=== PATIENT | female | born 1990 | race Caucasian/White ===

== ENCOUNTER 2017-03-28 11:08 | Inpatient (IN) | payer BC ==
[~2017-03-28] VITALS: Ht 158.8 cm; Wt 58.0 kg
--- OUTSIDE RECORDS SUMMARY | ~2017-03-28 | XMS ---
Demographics + + + | Address | [address] | | | [place] [address] | + + + | Preferred Language | Unknown | + + + | Marital Status | Unknown | + + + | Mu-Ism Affiliation | Unknown | + + + | Race | Unknown | + + + | Ethnic Group | Unknown | + + + Author + + + | Author | [facility] | + + + | Organization | [facility] | + + + | Address | [address] | | | [place] [address] | + + + | Phone | | + + + Care Team Providers + + + + | Care Cnc Manufacturing Engineer Name | Role | Phone | + + + + Unavailable | Unavailable | + + + + PROBLEMS +---------+ + + +--------+ + + | Type | Condition | ICD9-CM | FNS88-BP | Onset | Condition | SNOMED | | | | Code | Code | Dates | Status | Code | +---------+ + + +--------+ + + | Problem | Encounter | Z34.90 | | | Active | [id number] | | | for | | | | | | | | supervisio | | | | | | | | n of | | | | | | | | normal | | | | | | | | | | | | | | +---------+ + + +--------+ + + | Problem | Underweigh | | R63.6 | | Active | [id number] | | | t | | | | | | +---------+ + + +--------+ + + ALLERGIES Unknown Allergies SOCIAL HISTORY No smoking Hx information available PLAN OF CARE VITAL SIGNS MEDICATIONS Unknown Medications RESULTS No Results PROCEDURES No Known procedures IMMUNIZATIONS No Known Immunizations"
[~2017-03-28 11:08] MED LIST: CIPROFLOXACIN500 MG PO; CRUTCH1 EACH; KEFLEX250 MG PO; MIGRAINE RELIE1 EACH PO; NAPROXEN250 MG PO; NAPROXEN500 MG PO
--- NOTE | 2017-03-31 12:26 | PR ---
[facility] [address] [place], [place] [address] Signed Progress Notes IP Datetime Report Generated by CPN: 03/31/2017 12:25 PROGRESS NOTES: [id number] Procedures: Artificial ROM Plan: Continue present management; Anticipate Vaginal Delivery VITAL SIGNS: [id number] Vital Signs: Reviewed; Within Normal Limits EXAM: [id number] Dilatation: 4.0 Effacement: 80 Station: -2 Uterine Contractions: rare MEMBRANES: [id number] Membrane Status: Ruptured Amniotic Fluid Color: Clear ROM Note: AROM withour difficulty Comments: Would like Epidural when contracitons get strong Fetus A: [id number] FHR Baseline: 120 Variability: Moderate 6-25bpm Accelerations: 15X15 Presentation: Vertex Fetus B: [id number] Signing Physician: Chun Guillen MD CC: *Electronically Signed* 03/31/17 1225 CHUN GUILLEN MD PATIENT NAME: NOAH KAYE PROGRESS NOTE DATE OF : 89 PHYSICIAN: CHUN GUILLEN MD RPT #: [id number] REPORT IS CONFIDENTIAL AND NOT TO BE RELEASED WITHOUT AUTHORIZATION
--- NOTE | 2017-03-31 18:23 | PR ---
[facility] [address] [place], [place] [address] Signed Progress Notes IP Datetime Report Generated by CPN: 03/31/2017 18:23 PROGRESS NOTES: [id number] Impression: Slow Progression of Labor Procedures: Intrauterine Pressure Catheter; Scalp Electrode Plan: Augmentation; Anticipate Vaginal Delivery VITAL SIGNS: [id number] Vital Signs: Reviewed; Within Normal Limits EXAM: [id number] Dilatation: 5.0 Effacement: 90 Station: -2 Uterine Contractions: every 2-3 minutes MEMBRANES: [id number] Membrane Status: Ruptured Amniotic Fluid Color: Clear ROM Note: AROM withour difficulty Comments: Comfortable with Epidural, but slow progress. Start Pitocin (low dose). Fetus A: [id number] FHR Baseline: 130 Variability: Moderate 6-25bpm Accelerations: 15X15 Decelerations: Variable Presentation: Vertex Fetus B: [id number] Signing Physician: Chun Guillen MD CC: *Electronically Signed* 03/31/17 1823 CHUN GUILLEN MD PATIENT NAME: NOAH KAYE PROGRESS NOTE DATE OF : 92 PHYSICIAN: CHUN GUILLEN MD RPT #: [id number] REPORT IS CONFIDENTIAL AND NOT TO BE RELEASED WITHOUT AUTHORIZATION
--- NOTE | 2017-04-01 08:38 | PR ---
[facility] [address] [place], [place] [address] Signed PP Progress Notes Datetime Report Generated by CPN: 04/01/2017 08:38 SUBJECTIVE: [id number] Pain: Within normal limits Nausea/Vomiting: Denies Vital Signs: [id number] Vital Signs: Reviewed; Within Normal Limits EXAM: [id number] Abdomen/Uterus: Normal Lochia: Normal Extremities: Normal IMPRESSION/PLAN/PROCEDURES: [id number] Impression: Normal progression Plan: Continue present management Procedures: None Progress Notes: Doing well, without complaint. Signing Physician: Chun Guillen MD CC: *Electronically Signed* 04/01/17 0838 CHUN GUILLEN MD PATIENT NAME: NOAH KAYE PROGRESS NOTE DATE OF : 89 PHYSICIAN: CHUN GUILLEN MD RPT #: [id number] REPORT IS CONFIDENTIAL AND NOT TO BE RELEASED WITHOUT AUTHORIZATION
== END 2017-04-02 10:20 | disposition home or self-care (01) | DRG 775 ==
LOC: FBCO → EDSTATUS 16:30 → FBC 03-31 00:05
PROVIDERS: ADMIT General Practice
PROC: 10907ZC Drainage of Amniotic Fluid, Therapeutic from Products of Conception, Via Natural or Artificial Opening (ICD-10-PCS; principal; 2017-03-31)
PROC: 10E0XZZ Delivery of Products of Conception, External Approach (ICD-10-PCS; 2017-03-31)
PROC: 3E033VJ Introduction of Other Hormone into Peripheral Vein, Percutaneous Approach (ICD-10-PCS; 2017-03-31)
PROC: 00HU33Z Insertion of Infusion Device into Spinal Canal, Percutaneous Approach (ICD-10-PCS; 2017-03-31)
PROC: 3E0R3CZ (ICD-10-PCS; 2017-03-31)
DX: O99.02 Anemia complicating childbirth (principal); D50.9 Iron deficiency anemia, unspecified; Z3A.40 40 weeks gestation of pregnancy; Z37.0 Single live birth; O69.1XX0 Labor and delivery complicated by cord around neck, with compression, not applicable or unspecified; O99.03 Anemia complicating the puerperium
CPT/HCPCS: 01960; 36415; 83030; 85027; 86850; 86900; 86901; J2590; J2790

== ENCOUNTER 2019-06-21 18:04 | Emergency (ER) | payer OTHER ==
[~2019-06-21] VITALS: Ht 160 cm; Wt 45.4 kg
[~2019-06-21 18:04] MED LIST changes: +CLEOCIN HCL300 MG PO; +IBU800 MG PO; +PERCOCET 7.5-31 EACH PO
--- OUTSIDE RECORDS SUMMARY | 2019-06-21 18:08 | XMS ---
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 Care History Medical/Surgical 07/08/2018 [facility] - CHW SCHEDULED A FOLLOW UP APT WITH DR MENDOZA FOR 07/11/18 @ 5:45PM. PATIENT APPROVED OF THE APPOINTMENT. - CHW CONTACTED OLVIN - CLIENT DIRECTOR ABOUT PATIENT FRUSTRATION WITH ED PROVIDER. - Patient is currently established with [facility]. If patient is seen in the ED during business hours. Please contact CHWs at [facility]. Care Recommendation: This patient has had 5 or more Emergency Department visits in the last 12 months.\T\nbsp; Patient requires education on the scope and purpose of the ED as an acute care provider not a Primary Care Provider and should not be utilized for chronic conditions.\T\nbsp; These are guidelines and the provider should exercise clinical judgment when providing care. E.D. VISIT COUNT (12 MO.) 4 [facility] TOTAL 4 NOTE: Visits indicate total known visits. ED/UCC VISIT TRACKING (12 MO.) 06/21/2019 18:05 [facility] [place] TYPE: Emergency COMPLAINT: - COLD SYMPTOMS 03/17/2019 15:53 [facility] TYPE: Emergency COMPLAINT: - LEFT FOOT INJURY DIAGNOSES: - Allergy status to narcotic agent status - Overexertion from prolonged static or awkward postures, init - Pain in left foot - Unspecified sprain of left foot, initial encounter 07/07/2018 18:43 [facility] [place] TYPE: Emergency COMPLAINT: - FACIAL SWELLING/NON INJURY DIAGNOSES: - Allergy status to narcotic agent status - Localized swelling, mass and lump, head - Chronic sinusitis, unspecified 07/06/2018 20:[address] [facility] [place] TYPE: Emergency COMPLAINT: - FACIAL SWELLING DIAGNOSES: - Anxiety disorder, unspecified - Localized swelling, mass and lump, head - Allergy status to narcotic agent status - Cellulitis and abscess of mouth INPATIENT VISIT TRACKING (12 MO.) No inpatient visits to display in this time frame [email or web address]
[2019-06-21] MEDS ORDERED: TAMIFLU75 MG PO (19:40)
== END 2019-06-21 19:50 | disposition home or self-care (01) ==
LOC: ED 18:04
DX: J10.1 Influenza due to other identified influenza virus with other respiratory manifestations (principal); Z88.5 Allergy status to narcotic agent
CPT/HCPCS: 87502; 87880; 96372; 99283; J1885

== ENCOUNTER 2019-09-05 11:59 | Emergency (ER) | payer BC, OTHER ==
[~2019-09-05] VITALS: Ht 160 cm; Wt 51.8 kg
[~2019-09-05 11:59] MED LIST changes: +TAMIFLU75 MG PO
--- OUTSIDE RECORDS SUMMARY | 2019-09-05 12:02 | XMS ---
PreManage Notification: NOAH KAYE Security Performance Test Architect Events No recent Security Events currently on file [place] [facility] [place] DHAVAL MENDOZA Internal Medicine 07/08/2018-Current COLIN PHONE: [phone] DANG ROSARIO [facility] Medicine: Sports Medicine 07/08/2018-Current PHONE: Unknown Sean Siu Current PHONE: Unknown Sonali Braswell Current Orthopedic Surgery \T\ Fracture Clinic PHONE: Unknown Joe has no Care Guidelines for this patient. Care History Medical/Surgical 07/08/[address] [facility] - CHW SCHEDULED A FOLLOW UP APT WITH DR MENDOZA FOR 07/11/18 @ 5:45PM. PATIENT APPROVED OF THE APPOINTMENT. - CHW CONTACTED OLVIN - DAIRY TRUCK DRIVER ABOUT PATIENT FRUSTRATION WITH ED PROVIDER. - Patient is currently established with [facility]. If patient is seen in the ED during business hours. Please contact CHWs at [facility]. Care Recommendation: This patient has had 5 [...] providing care. E.D. VISIT COUNT (12 MO.) 3 [facility] TOTAL 3 NOTE: Visits indicate total known visits. ED/C VISIT TRACKING (12 MO.) 09/05/2019 12:00 [facility] TYPE: Emergency COMPLAINT: - SUICIDAL IDEATIONS 06/21/2019 18:05 [facility] TYPE: Emergency COMPLAINT: - COLD SYMPTOMS DIAGNOSES: - Flu due to oth ident influenza virus w oth resp manifest - Allergy status to narcotic agent status - Cough 03/17/2019 15:53 [facility] TYPE: Emergency COMPLAINT: - LEFT FOOT INJURY DIAGNOSES: - Allergy status to narcotic agent status - Overexertion from prolonged static or awkward postures, init - Pain in left foot - Unspecified sprain of left foot, initial encounter INPATIENT VISIT TRACKING (12 MO.) No inpatient visits to display in this time frame [email or web address]
[2019-09-05] MEDS ORDERED: BUPROPION XL150 MG PO (12:09)
[2019-09-05] MEDS ORDERED: HYDROXYZINE HCL25 MG PO (12:09)
== END 2019-09-05 14:25 | disposition home or self-care (01) ==
LOC: ED 11:59
DX: F32.9 Major depressive disorder, single episode, unspecified (principal); Z88.5 Allergy status to narcotic agent; Z79.899 Other long term (current) drug therapy
CPT/HCPCS: 99283

== ENCOUNTER 2020-12-27 13:42 | Emergency (ER) | payer BC, OTHER ==
[~2020-12-27] VITALS: Ht 160 cm; Wt 51.8 kg
[~2020-12-27 13:42] MED LIST changes: +BUPROPION XL150 MG PO; +HYDROXYZINE HCL25 MG PO
--- OUTSIDE RECORDS SUMMARY | 2020-12-27 13:44 | XMS ---
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 Care History Medical/Surgical 07/08/2018 [facility] - W SCHEDULED A FOLLOW UP APT WITH DR MENDOZA FOR 07/11/18 @ 5:45PM. PATIENT APPROVED OF THE APPOINTMENT. - CHW CONTACTED OLVIN - NETWORK SYSTEMS ADMINISTRATOR ABOUT PATIENT FRUSTRATION WITH ED PROVIDER. - Patient is currently established with [facility]. If patient is seen in the ED during business hours. Please contact CHWs at [facility]. Care Recommendation: This patient has had 5 or more Emergency Department visits in the last 12 months.\T\nbsp; Patient requires education on the scope and purpose of the ED as an acute care provider not a Primary Care Provider and should not be utilized for chronic conditions.\T\nbsp; These are guidelines and the provider should exercise clinical judgment when providing care. Behavioral 09/06/2019 [facility] Concerns of self harm.\T\nbsp; [employer] involved.\T\nbsp; Patient has follow up visit with crisis counselor next week.\T\nbsp; Follow up scheduled with PCP Dr. Mendoza on 09/30/2019 [facility] VISIT COUNT (12 MO.) 1 [facility] TOTAL 1 NOTE: Visits indicate total known visits. ED/UCC VISIT TRACKING (12 MO.) [facility] COMPLAINT: - FACIAL PAIN INPATIENT VISIT TRACKING (12 MO.) No inpatient visits to display in this time frame [email or web address]
[2020-12-27] MEDS ORDERED: AMOXICILLIN500 MG PO (14:04)
[2020-12-27] MEDS ORDERED: PSEUDOEPHEDRINE30 MG PO (14:04)
[2020-12-27] MEDS ORDERED: SERTRALINE HCL50 MG PO (14:05)
== END 2020-12-27 15:06 | disposition home or self-care (01) ==
LOC: ED 13:42
DX: K02.9 Dental caries, unspecified (principal); J32.9 Chronic sinusitis, unspecified; Z88.5 Allergy status to narcotic agent; Z79.899 Other long term (current) drug therapy
CPT/HCPCS: 64400; 99282-25

== ENCOUNTER 2022-01-19 16:05 | Emergency (ER) | payer OTHER ==
[~2022-01-19] VITALS: Ht 160 cm; Wt 51.8 kg
[~2022-01-19 16:05] MED LIST changes: +AMOXICILLIN500 MG PO; +PSEUDOEPHEDRINE30 MG PO; +SERTRALINE HCL50 MG PO
[2022-01-19] MEDS ORDERED: ATIVAN0.5 MG PO (20:22)
== END 2022-01-19 20:47 | disposition home or self-care (01) ==
LOC: ED 16:05
DX: F41.9 Anxiety disorder, unspecified (principal); F32.A Depression, unspecified; Z88.5 Allergy status to narcotic agent; Z79.899 Other long term (current) drug therapy
CPT/HCPCS: 71045; 94640; 99283-25

== ENCOUNTER 2023-07-11 17:22 | Emergency (ER) | payer OTHER ==
[~2023-07-11] VITALS: Ht 160 cm; Wt 55.1 kg
[~2023-07-11 17:22] MED LIST changes: +ATIVAN0.5 MG PO
[2023-07-11 17:41] LABS: BILIRUBIN, URINE NEGATIVE (negative); BLOOD/HGB, URINE LARGE (Negative); KETONE, URINE NEGATIVE (Negative); LEUK ESTERASE, URINE NEGATIVE (negative); NITRITE, URINE NEGATIVE (negative); PH, URINE 6.5 (5-7)
[2023-07-11] MEDS ORDERED: CEPHALEXIN250 MG PO (17:46)
[2023-07-11 18:01] LABS: BACTERIA, URINE RARE /hpf (negative); CASTS, URINE NONE SEEN \\lpf; COLLECTION TYPE, URINE CLEAN CATCH; CRYSTALS, URINE NONE SEEN (0-1+); EPITHELIAL CELLS, URINE SQUAMOUS 1+ /lpf (0-1+); REFLEX CULTURE, URINE No (No)
[2023-07-11 19:50] LABS: ABO B; RH NEGATIVE
[2023-07-11 20:32] VITALS: BP 101/60
== END 2023-07-11 20:32 | disposition home or self-care (01) ==
LOC: ED 17:22
PROVIDERS: Emergency Medicine
DX: O20.9 Hemorrhage in early pregnancy, unspecified (principal); Z3A.14 14 weeks gestation of pregnancy; Z88.5 Allergy status to narcotic agent; Z79.899 Other long term (current) drug therapy
CPT/HCPCS: 36415; 81001; 86900; 86901; J2790

== ENCOUNTER 2024-01-05 06:05 | Inpatient (IN) | payer OTHER ==
[~2024-01-05] VITALS: Ht 160 cm; Wt 65.8 kg
[~2024-01-05 06:05] MED LIST changes: +CALCIUM CARBONATE 500 MG CHEW PO PRN; +CEPHALEXIN250 MG PO; +LACTATED RINGER'S 1,000 ML IV SCH; +MAGNESIUM HYDROXIDE/AL HYDROX 30 ML CUP PO PRN; +miSOPROStoL 25 MCG TAB PV SCH
[2024-01-05] MEDS ORDERED: OXYTOCIN/DEXTROSE 5% 20 UNITS/100 ML BAG IV SCH (06:15)
[2024-01-05] MEDS ORDERED: LACTATED RINGER'S 1,000 ML IV PRN (06:15)
[2024-01-05] MEDS ORDERED: ondansetron HCL 4 MG/2 ML VIAL IV PRN ×3 (06:15→23:15)
[2024-01-05 06:47] VITALS: BP 110/66
[2024-01-05 06:52] LABS: HEMATOCRIT 29.7 % (35.0-50.0); HEMOGLOBIN 9.7 g/dL (12.0-18.0); MCHC 32.6 g/dl (30-36); MCV 79.8 fl (81-99); RBC 3.72 M/ul (4.3-5.7)
[2024-01-05 07:11] LABS: AMPHETAMINES, URINE NEGATIVE (NEGATIVE); BARBITURATES, URINE NEGATIVE (NEGATIVE); BENZODIAZEPINE, URINE NEGATIVE (NEGATIVE); BUPRENORPHINE, URINE NEGATIVE (NEGATIVE); CANNABINOID, URINE NEGATIVE (NEGATIVE); COCAINE, URINE NEGATIVE (NEGATIVE); ECSTASY, URINE NEGATIVE (NEGATIVE); FENTANYL, URINE NEGATIVE (NEGATIVE); METHADONE, URINE NEGATIVE (NEGATIVE); OPIATES, URINE NEGATIVE (NEGATIVE); OXYCODONE, URINE NEGATIVE (NEGATIVE); PHENCYCLIDINE, URINE NEGATIVE (NEGATIVE)
[2024-01-05 07:26] LABS: ABO B; ANTIBODY SCREEN NEGATIVE; RH NEGATIVE
--- NOTE | 2024-01-05 18:12 | PR ---
[facility] [address] [place], [place] [address] Signed Progress Notes IP Datetime Report Generated by CPN: 01/05/2024 18:12 PROGRESS NOTES: [id number] Impression: Normal Progression of Labor; Reassuring Heart Rate Procedures: Artificial ROM; Sterile Vag Exam Plan: Continue Present Management Other Plans: Epidural demand Informed Consent Obtain: Vaginal Delivery VITAL SIGNS: [id number] Vital Signs: Reviewed; Within Normal Limits EXAM: [id number] Dilatation: 2.0 Effacement: 70 Station: -3 Contractions: q 1-2 min MEMBRANES: [id number] Comments: Pt seen and examined. Doing well. More uncomfortable w/ contractions. cervix ripe and head well applied. Recommended AROM and pt agrees. AROM for large amount of clear fluid. Pt and baby tolerated well. Pt considering epidural. Continue expectant management. FETUS A: [id number] FHR Baseline: 135 Variability: Moderate 6-25bpm Accelerations: 15X15 Decelerations: None Presentation: Vertex Comments on Fetus A: No evidence of metabolic acidosis FETUS B: [id number] Signing Physician: Howie Cisneros DO Copies: ~ *Electronically Signed* 01/05/24 600 HOWIE CISNEROS (RONI) DO PATIENT NAME: NOAH KAYE PROGRESS NOTE DATE OF : 89 PHYSICIAN: HOWIE CISNEROS) DO RPT #: [id number] REPORT IS CONFIDENTIAL AND NOT TO BE RELEASED WITHOUT AUTHORIZATION
[2024-01-05] MEDS ORDERED: LIDOCAINE HCL 2% 5 ML SDV ONE ×2 (19:07→19:32)
[2024-01-05] MEDS ORDERED: ROPIVACAINE 0.2% 200 ML BAG ONE (19:07)
[2024-01-05] MEDS ORDERED: BUPIVACAINE HCL 0.25% 10 ML SDV INJ ONE (19:07)
[2024-01-05] MEDS ORDERED: dexmedeTOMIDine HCl 200 MCG/2 ML VIAL ONE (19:32)
[2024-01-05] MEDS ORDERED: LACTATED RINGER'S 500 ML IV PRN (20:00)
[2024-01-05] MEDS ORDERED: ROPIVACAINE 0.2% 200 ML BAG EPIDURAL SCH ×2 (20:00)
[2024-01-05] MEDS ORDERED: LACTATED RINGER'S 2,000 ML IV ONE (20:00)
[2024-01-05] MEDS ORDERED: ePHEDrine sulfate 5 MG/ML SYRINGE IV PRN (20:00)
[2024-01-05] MEDS ORDERED: TRANEXAMIC ACID IN NACL,ISO-OS 100 ML IV ONE (20:07)
[2024-01-05] MEDS ORDERED: LIDOCAINE HCL 4% 5 ML AMP ONE (20:15)
[2024-01-05] MEDS ORDERED: ondansetron HCL 4 MG/2 ML VIAL ONE (20:15)
[2024-01-05] MEDS ORDERED: MIDAZOLAM HCL 2 MG/2 ML VIAL ONE (20:15)
[2024-01-05] MEDS ORDERED: fentaNYL citrate 100 MCG/2 ML VIAL ONE (20:15)
[2024-01-05] MEDS ORDERED: FAMOTIDINE 20 MG/ 2 ML VIAL ONE (20:15)
[2024-01-05] MEDS ORDERED: METOCLOPRAMIDE HCL 10 MG/2 ML SDV ONE (20:15)
[2024-01-05] MEDS ORDERED: SUCCINYLCHOLINE IN 0.9% NACL 200 MG/10 ML SYRINGE ONE (20:15)
[2024-01-05] MEDS ORDERED: KETOROLAC TROMETHAMINE 30 MG/ML VIAL ONE (20:15)
[2024-01-05] MEDS ORDERED: ROCURONIUM BROMIDE 50 MG/5 ML SYR ONE (20:15)
[2024-01-05] MEDS ORDERED: propofoL 200 MG/20 ML VIAL ONE (20:15)
[2024-01-05] MEDS ORDERED: DEXAMETHASONE SOD PHOS 4 MG/ML VIAL ONE (20:15)
[2024-01-05] MEDS ORDERED: LACTATED RINGER'S 1,000 ML IV ONE ×8 (20:15→22:06)
[2024-01-05] MEDS ORDERED: SUGAMMADEX SODIUM 200 MG/2 ML ML ONE (20:15)
[2024-01-05] MEDS ORDERED: LIDOCAINE 2% W/ EPI 1:200,000 20 ML SDV ONE (20:21)
[2024-01-05] MEDS ORDERED: CEFAZOLIN SOD 1,000 MG/10 ML VIAL ONE (20:43)
[2024-01-05 21:07] LABS: BASOPHILS 0.3 % (0-2); HEMATOCRIT 24.1 % (35.0-50.0); HEMOGLOBIN 7.6 g/dL (12.0-18.0); LYMPHOCYTES 6.8 % (24-44); MCH 25.7 (27-36); MCHC 31.4 g/dl (30-36); MCV 81.8 fl (81-99); MONOCYTES 3.6 % (0-12); NEUTROPHILS 89.3 % (39-80); PLATELET COUNT 134 K/uL (140-440); RBC 2.95 M/ul (4.3-5.7); RDW 13.9 (10.5-15.0)
[2024-01-05 21:23] LABS: IS CROSSMATCH COMPATIBLE
[2024-01-05 21:24] LABS: INR 1.1 (0.80-1.30); PROTIME 13.8 Sec (11.2-14.2)
[2024-01-05 21:28] LABS: PARTIAL THROMBOPLASTIN TIME 31.9 Sec (22.9-41.3)
[2024-01-05] MEDS ORDERED: TRANEXAMIC ACID 1,000 MG/10 ML AMP ONE (21:56)
[2024-01-05 22:22] LABS: INR 1.27 (0.80-1.30); PARTIAL THROMBOPLASTIN TIME 26.2 Sec (22.9-41.3); PROTIME 15.5 Sec (11.2-14.2)
[2024-01-05 22:26] LABS: BASOPHILS 0.2 % (0-2); EOSINOPHILS 0.1 % (0-6); HEMATOCRIT 24.5 % (35.0-50.0); HEMOGLOBIN 7.9 g/dL (12.0-18.0); LYMPHOCYTES 3.9 % (24-44); MCH 27.5 (27-36); MCHC 32.4 g/dl (30-36); MONOCYTES 3.2 % (0-12); NEUTROPHILS 92.6 % (39-80); PLATELET COUNT 127 K/uL (140-440); RBC 2.88 M/ul (4.3-5.7); RDW 14.8 (10.5-15.0)
[2024-01-05] MEDS ORDERED: IBLOOD GLUCOSE TEST STRIP 1 EA TEST VI PRN (22:30)
[2024-01-05] MEDS ORDERED: NALOXONE HCL 0.4 MG SYR IV PRN ×2 (22:30→23:15)
[2024-01-05] MEDS ORDERED: fentaNYL citrate 50 MCG/ML SDV IV PRN (22:30)
[2024-01-05] MEDS ORDERED: MIDAZOLAM HCL 2 MG/2 ML VIAL IV PRN (22:30)
[2024-01-05] MEDS ORDERED: MORPHINE SULFATE 10 MG/ML VIAL IV PRN ×2 (22:30→23:15)
[2024-01-05] MEDS ORDERED: droPERidol 5 MG/2 ML VIAL IV PRN (22:30)
[2024-01-05] MEDS ORDERED: METOCLOPRAMIDE HCL 10 MG/2 ML SDV IV PRN ×2 (22:30→23:15)
[2024-01-05] MEDS ORDERED: PROCHLORPERAZINE EDISYLATE 10 MG/2 ML VIAL IV PRN (22:30)
[2024-01-05] MEDS ORDERED: LORazepam 2 MG/ML VIAL IV PRN (22:30)
--- NOTE | 2024-01-05 23:08 | NUR ---
PATIENT ARRIVE AT THIS TIME, SHE HAS SEVERE SHIVERING, SHE HAS 96.7 F TEMP AT THIS TIME. OR NURSE WENT AND RETRIEVED BEAR HUGGER WARMER WELL WARM BLANKETS APPLIED. TWO SURGERY RNS AND ADRIAN ALBA CRNA IN ROOM, PATIENT NOTED TO HAVE SCANT AMOUNT OF BLOOD ON RAMO PAD AND SHADOW ON ABD DRESSING, ALSO NOTEABLE LEFT ARM AND HAND SWOLLEN, TIGHT AND DUSKY. ADRIAN ALBA AWARE, PULSES STRONG AT LEFT RADIAL PULSE, ARM ELEVATED WITH WARM BLANKET, PATIENT ALSO REPORT PAINFUL AT ABD AND LEFT ARM, PAIN MEDICATIONS GIVEN BY SPECIAL ED ASSISTANT.
[2024-01-05 23:15] VITALS: BP 185/152
[2024-01-05] MEDS ORDERED: SIMETHICONE 125 MG TABLET CHEWABLE PO PRN (23:15)
[2024-01-05] MEDS ORDERED: OXYCODONE/APAP 5/325 TAB PO PRN (23:15)
[2024-01-05] MEDS ORDERED: bisacodyL 10 MG SUPP PR PRN (23:15)
[2024-01-05] MEDS ORDERED: FAMOTIDINE 20 MG/ 2 ML VIAL IV PRN (23:15)
[2024-01-05] MEDS ORDERED: LACTATED RINGER'S 1,000 ML IV SCH (23:15)
[2024-01-05] MEDS ORDERED: IBUPROFEN 800 MG TAB PO PRN (23:15)
[2024-01-05 23:20] VITALS: BP 110/51
[2024-01-05] MEDS ORDERED: MEPERIDINE HCL 25 MG/1 ML VIAL ONE (23:20)
[2024-01-05 23:30] VITALS: BP 106/51
[2024-01-05] MEDS ORDERED: ETOMIDATE 40 MG/20 ML VIAL ONE (23:33)
[2024-01-05 23:45] VITALS: BP 105/55
--- NOTE | 2024-01-05 23:45 | NUR ---
BOARDING KENNEL OR CATTERY OPERATOR ANASTASIA REPORT OFF CARE TO THIS RN AT THIS TIME.
--- NOTE | 2024-01-05 23:55 | NUR ---
1 UNIT FFP STARTED PER ORDERS. IVF RUNNING, NEW IV STARTED IN RIGHT AC, LEFT WRIST IV REMOVED, IT WAS NOTED TO HAVE BLOOD RETURN PRIOR TO REMOVAL. HAVEING THE SWELLING AND TIGHTNESS AT LEFT ARM/HAND NOT GOING TO USE THIS IV. PATIENT COOPERATIVE WITH ALL CARE. FAMILY HAS BEEN APPROPRIATE WITH CCU STAFF.
[2024-01-06] VITALS (18 sets, daily range): BP systolic 99–156; BP diastolic 50–92
--- NOTE | 2024-01-06 | NUR ---
TO BEDSIDE, SPOUSE HAS BEEN IN AND LEFT FOR NOW, THIS RN HAS BROUGHT TO ATTENTION LEFT HAND AND ARM SYMPTOMS. TALKED WITH PATIENT ABOUT SURGERY AND PLAN OF CARE.
--- NOTE | 2024-01-06 00:37 | NUR ---
01/06/24 0037 Annette Hyman 2308 PATIENT INTO CCU ROOM 128. GLORIA GRAMAJO AT BEDSIDE. MARY ALBA INTO GIVE REPORT. PATIENT REACTIVE TO VERBAL STIMULI. PATIENT SHAKING. BLANKETS OVER PATIENT. BREATHING LABORED BUT EQUAL. OXYGEN SATURATIONS ABOVE 100% VIA MASK. RR 10-20. UNABLE TO OBTAIN AN ACCURATE PRESSURE AT THIS TIME. PATIENT SURGICAL DRESSING CLEAN, DRY AND INTACT. RAMO PAD SMALL AMOUNT OF RED SHADOWING PRESENT. IVF INFUSING. LEFT ARM ELEVATED DUE TO SWELLING IN EXTERMITY. PULSES FELT STRONG. SCD'S ON. KELLER CATH DRAINING CLEAR AND YELLOW URINE. 2315 PATIENT REACTIVE. PATIENT BREATHING EQUAL AND UNLABORED. OXYGEN SATURATIONS ABOVE 100% VIA MASK ON 10 LITERS. SINUS TACH ON TELE. 2320 ABLE TO OBTAIN BLOOD PRESSURE FROM LEFT LOWER EXTERMITY. 2325 PATIENT DROWSY. PATIENT BREATHING EQUAL AND UNLABORED. PATIENT SHAKING AND PAIN IS AT A 5/10. 5 MG OF IV MORPHINE GIVEN. MARY ALBA GIVING IV DEMEROL. PATIENT OXYGEN SATURATIONS ABOVE 90% WITH 6 LITERS VIA MASK. SINUS TACH ON TELE. SURGICAL SITE CLEAN, DRY AND INTACT. RAMO PAD SMALL AMOUNT OF SHADOWING. IVF INFUSING. SCD'S ON. 2335 PATIENT DROWSY. PATIENT STATES PAIN HAS IMPROVED TO A 0/10. SHAKING HAS STOPPED. PATIENT OXYGEN TITRATED DOWN TO 2 LITERS VIA NASAL CANNULA. PATIENT BREATHING EQUAL AND UNLABORED. OXYGEN SATURATIONS ABOVE 90% ON ROOM AIR. RR 12-20. SINUS TACH ON TELE. SURGICAL DRESSING CLEAN, DRY AND INTACT. RAMO PAD SMALL AMOUNT OF SHADOWING. 2345 PATIENT AND FRIEND AT BEDSIDE. PATIENT FRUSTRATED ABOUT OUTCOME OF PROCEDURE. PATIENT INSISTS PATIENT GETS TRANSFERRED TO ANOTHER FACILITY IN THE MORNING. APPLICATION SECURITY DEVELOPER AWARE OF SITUATION. SECURITY OUTSIDE OF ROOM. 2350 GLORIA GRAMAJO INTO ROOM TO RECIEVE REPORT. BED IN LOWEST POSITION. CALL LIGHT GIVEN. NO QUESITIONS FROM THE PATIENT, NURSE OR AT THIS TIME. NO FUTHER NEEDS.
--- NOTE | 2024-01-06 01:30 | NUR ---
SISTER, BABY AND SPOUSE IN ROOM TO VISIT AT THIS TIME. PATIENT V/S STABLE, SHE REPORTS ONLY PAIN AT THIS TIME IS IN LEFT HAND
--- NOTE | 2024-01-06 02:31 | NUR ---
PATIENT LEFT HAD REMAINS SWOLLEN AND TIGHT AND PAINFUL. WARM PACK/BLANKET AND TWO PILLOWS ELEVATED AT THIS TIME, COLOR HAS IMPROVED, RADIAL PULSE IS STRONG, CAP REFILL IS BRISK.
--- NOTE | 2024-01-06 03:00 | NUR ---
BLOOD DRAWN FROM NEW IV SITE AT RIGHT AC. PATIENT ALERT AND ORIENTED, REPORTS PAIN AT LEFT HAND/FA.
[2024-01-06 03:07] LABS: HEMATOCRIT 25.8 % (35.0-50.0); HEMOGLOBIN 8.5 g/dL (12.0-18.0); MCH 27.4 (27-36); MCV 83.1 fl (81-99); RBC 3.1 M/ul (4.3-5.7); RDW 14.7 (10.5-15.0)
[2024-01-06 03:17] LABS: INR 1.09 (0.80-1.30); PROTIME 13.8 Sec (11.2-14.2)
[2024-01-06 03:19] LABS: PARTIAL THROMBOPLASTIN TIME 26.4 Sec (22.9-41.3)
--- NOTE | 2024-01-06 04:08 | NUR ---
CALLED AFTER TALKING WITH OF CONCERNS FOR COMPARTMENT SYNDROME, SAID HE DOES NOT DO HANDS, TNT POWDER WORKER RN HAD FROM ED COME DOWN AND LOOK AT HER LEFT HAND, SHE SUGGESTS MEDIUM COMPRESSION, HIGHER ELEVATION AND S/L PT, CALLED BACK HE AGREES WITH THE ABOVE, HE IS GOING TO CALL HIMSELF FOR FURHTER CONSULT.
--- NOTE | 2024-01-06 04:21 | NUR ---
CALLED TO REPORT THAT WILL BE INTO ASSESS PATIENT.
[2024-01-06 04:32] LABS: ABO B; ANTIBODY SCREEN NEGATIVE; RH NEGATIVE; RHIG VIAL 1 RG22K01-L
[2024-01-06 04:33] LABS: FETAL HEMOGLOBIN SCREEN NEGATIVE; RHIG STATUS CANDIDATE
[2024-01-06 04:35] LABS: RHIG DOSE 1
--- NOTE | 2024-01-06 05:02 | NUR ---
DR. PENA AT BEDSIDE FOR PT ASSESSMENT.
--- NOTE | 2024-01-06 05:28 | NUR ---
HAS BEEN INTO ASSESS PATIENT AND TAKE PRESSURES THROUGHOUT LEFT FA AND HAND, PRESSURES ARE NOTED TO BE HIGH, PLANS TO TAKE HER TO SURGERY THIS AM TO RELIEVE PRESSURES.
[2024-01-06 05:38] LABS: ALBUMIN 1.6 g/dL (3.4-5.0); ALBUMIN/GLOBULIN RATIO 0.59 (1.1-2.4); BILIRUBIN, TOTAL 0.4 ng/dL (0.2-1.0); BUN/CREATININE RATIO 4.54 (6.0-28.6); CALCIUM 7.3 mg/dL (8.5-10.1); CREATININE, SERUM 0.66 mg/dL (0.55-1.02); PROTEIN, TOTAL 4.3 g/dL (6.4-8.2)
--- NOTE | 2024-01-06 06:01 | NUR ---
PATIENT OFF THE FLOOR NOW WITH SURGERY NURSES X2. BHARATH PT'S SPOUSE LEFT UNIT TO GO SPEND TIME WITH BABY IN [facility]. LABS PRINTED, CONSENT SIGNED ON CHART, ALL QUESTIONS ANSWERED FOR PATIENT AND SPOUSE. SPOUSE IS VERY UPSET WITH PATIENT NEEDING FURTHER SURGERY, ELECTRONICS PRODUCTION SUPERVISOR TROY RN IN ROOM TO TALK WITH PATIENT, TROY SAID SHE WOULD REACH OUT TO ADMINISTRATION TO TALK WITH PATIENT AND SPOUSE. PATIENT SAID IF ANYTHING ELSE COMES UP "I WILL WANT TO BE TRANSFERED TO ANOTHER HOSPITAL"
[2024-01-06] MEDS ORDERED: fentaNYL citrate 100 MCG/2 ML VIAL ONE (06:13)
[2024-01-06] MEDS ORDERED: dexmedeTOMIDine HCl 200 MCG/2 ML VIAL ONE (06:14)
[2024-01-06] MEDS ORDERED: SODIUM CHLORIDE 0.9% 40 ML IV ONE (06:14)
[2024-01-06] MEDS ORDERED: LIDOCAINE HCL 2% 5 ML SDV ONE (06:14)
[2024-01-06] MEDS ORDERED: ondansetron HCL 4 MG/2 ML VIAL ONE (06:14)
[2024-01-06] MEDS ORDERED: DEXAMETHASONE SOD PHOS 4 MG/ML VIAL ONE (06:14)
[2024-01-06] MEDS ORDERED: ROCURONIUM BROMIDE 50 MG/5 ML SYR ONE (06:14)
[2024-01-06] MEDS ORDERED: KETAMINE in NS 50 MG/5 ML SYR ONE (06:14)
[2024-01-06] MEDS ORDERED: MAGNESIUM SULFATE 1 GM/2 ML VIAL ONE (06:14)
[2024-01-06] MEDS ORDERED: propofoL 200 MG/20 ML VIAL ONE (06:14)
[2024-01-06] MEDS ORDERED: LIDOCAINE HCL 4% 5 ML AMP ONE (06:20)
[2024-01-06] MEDS ORDERED: PHENYLEPHRINE HCL 10 MG/ML VIAL ONE (06:32)
[2024-01-06] MEDS ORDERED: CEFAZOLIN SOD 1,000 MG/10 ML VIAL ONE (06:38)
[2024-01-06] MEDS ORDERED: KETOROLAC TROMETHAMINE 30 MG/ML VIAL ONE (08:04)
[2024-01-06] MEDS ORDERED: SUGAMMADEX SODIUM 200 MG/2 ML ML ONE (08:06)
[2024-01-06] MEDS ORDERED: HYDROmorphone HCL 1 MG/ML SYR IV PRN (08:15)
[2024-01-06] MEDS ORDERED: fentaNYL citrate 50 MCG/ML SDV IV PRN (08:15)
[2024-01-06] MEDS ORDERED: ondansetron HCL 4 MG/2 ML VIAL IV PRN (08:15)
[2024-01-06] MEDS ORDERED: NALOXONE HCL 0.4 MG SYR IV PRN ×2 (08:15)
[2024-01-06] MEDS ORDERED: IBLOOD GLUCOSE TEST STRIP 1 EA TEST VI PRN ×2 (08:15)
[2024-01-06] MEDS ORDERED: droPERidol 5 MG/2 ML VIAL IV PRN (08:15)
--- NOTE | 2024-01-06 08:55 | NUR ---
Received patient from PACU. Patient arrives on room air with stable SPO2. VSS. Alert and oriented to all. Patient hoarse and whispering. Oral swab with water provided. Facial edema noted. HRR. LSC with no crackles noted. Bowel tones active. Skin grossly intact-see wound charts. Midline incision to ABD covered with clean gauze, no bleeding noted. L arm wrapped with soaked kerlex, gauze and JOANN wrap. Hand positioned on pillow for comfort. Patient able to wiggle all fingers on L hand, states 8/10 pain. 5mg morphine administered. Fingers cool and swollen. This RN left a message for Dr Caldera. IVs to R arm both WNL, flush well. Lab in room to draw. Patient assessment WNL at this time. Breasts soft with no pain. Vaginal area swollen as expected per delivery, montenegro catheter in place draining clear yellow urine, mora pad in place with scant blood noted. DTR test complete with no hyperreflexia or clonus seen to bilateral legs. No swelling in legs, CMS fully intact. SCDs in place. Pt is afebrile, agreeable to plan of care, in room and updated on patient status. Both have no concerns at this time.
[2024-01-06] MEDS ORDERED: SENNOSIDES/DOCUSATE 1 EA TAB PO SCH (09:00)
[2024-01-06] MEDS ORDERED: OXYTOCIN 10 UNITS/ML VIAL IV ONE (09:12)
--- NOTE | 2024-01-06 09:17 | NUR ---
01/06/24 0917 Sarah,Meredith 0893 PT ARRIVED TO PACU ON RA, PT ASLEEP AND REACTVE TO TACTILE SITMULI. RESP EVEN AND UNLABORED BUT SHALLOW AND DECREASED RATE. PT ENCOURAGED TO DEEP BREATHE OFF AND ON. PT NODS "NO" WHEN ASKED ABOUT PAIN. 0840 MD AT BEDSIDE TALKING TO PT, PT OPENS HER EYES AND RESPONDS TO QUESTIONS. PT ABLE TO MOVE LEFT HAND BUT DOES REPORT PAIN. PT DENIES NAUSEA. PLAN OF CARE DISCUSSED. PT ABLE TO FALL BACK ASLEEP EASILY WITH SMALL AMOUNT OF SNORING NOTED. 0855 PT RETUREND TO CCU WITH CCU RNS AT BEDSIDE. REPORT GIVEN AND BED PLUGGED IN. ALL QUESITONS ANSWERED, PT MORE AWAKE AND TALKING TO CCU RNS.
[2024-01-06 09:40] LABS: BASOPHILS 0.2 % (0-2); HEMATOCRIT 24.2 % (35.0-50.0); HEMOGLOBIN 7.8 g/dL (12.0-18.0); LYMPHOCYTES 4.5 % (24-44); MCH 26.9 (27-36); MCHC 32.4 g/dl (30-36); MCV 83.2 fl (81-99); MONOCYTES 2.1 % (0-12); NEUTROPHILS 93.2 % (39-80); PLATELET COUNT 128 K/uL (140-440); RBC 2.91 M/ul (4.3-5.7); RDW 15.1 (10.5-15.0)
[2024-01-06 09:49] LABS: RBC, LEUKOREDUCED 18212400093000F; RBC, LEUKOREDUCED 18212406358800U
--- NOTE | 2024-01-06 09:51 | NUR ---
PATIENT WENT TO CCU POST-SURGERY X2. THE TEACHER OF THE HANDICAPPED WILL BE AVAILABLE FOR ANY DISCHARGE PLANNING NEEDS THAT MAY COME UP DURING THE PATIENT'S HOSPITALIZATION.
[2024-01-06 09:52] LABS: INR 1.14 (0.80-1.30); PROTIME 13.9 Sec (11.2-14.2)
--- NOTE | 2024-01-06 10:00 | NUR ---
REFERRED BY NURSING STAFF DUE TO COMPLICATED SITUATION. PT AWAKE AND ABLE TO CONVERSE. STATED WANTED TO SEE BABY. RN HERMINIA RELAYED PT CONCERNED ABOUT ACCESS TO BREAST PUMP. I FACILITATED ACQUISITION OF BREAST PUMP FROM [facility] AND INQUIRED TO FEASIBILTY OF BABY VISIT. [facility] NURSING STAF INDICATED WOULD TAKE BABY TO PT ROOM FOR VISIT. I RELAYED THIS PLAN TO PT. PT EXPRESSED GRATITUDE, ACCEPTANCE OF SITUATION.
[2024-01-06 10:05] LABS: ALBUMIN 1.5 g/dL (3.4-5.0); ALBUMIN/GLOBULIN RATIO 0.63 (1.1-2.4); ANION GAP 14.6 (7-21); BILIRUBIN, TOTAL 0.3 ng/dL (0.2-1.0); BUN/CREATININE RATIO 6.34 (6.0-28.6); CALCIUM 7.3 mg/dL (8.5-10.1); CREATININE, SERUM 0.63 mg/dL (0.55-1.02); POTASSIUM 4.6 mmol/L (3.5-5.1); PROTEIN, TOTAL 3.9 g/dL (6.4-8.2)
--- NOTE | 2024-01-06 10:08 | NUR ---
Discussed lab values and patient status with Dr Natarajan, verbal orders to decrease IVF to 85ml/hr, baseline set for concerns with L arm postop-- considered WNL at this time. FBC RN in room with baby and mom to promote skin to skin. Michael in room.
[2024-01-06] MEDS ORDERED: FLONASE ALLERG9.9 ML NAS (10:18)
[2024-01-06] MEDS ORDERED: ADVIL200 MG PO (10:19)
[2024-01-06] MEDS ORDERED: TYLENOL325 MG PO (10:19)
--- NOTE | 2024-01-06 10:19 | NUR ---
MED REC COMPLETE
--- NOTE | 2024-01-06 11:20 | NUR ---
PATIENT HAS BABY ON HER CHEST WITH OB STAFF AT THE BEDSIDE. PATIENT REQUESTED A NEW WARM BLANKET ON HER LEFT ARM. ELEVATED PATIENT ARM MORE. DISCUSSED WITH PATIENT WHY SHE HAS SWEELING IN HER FACE. PATIENT DENIES ANY OTHER NEEDS AT THIS TIME.
--- NOTE | 2024-01-06 12:15 | NUR ---
VSS on RA, patient A+O, states no complaints at this time. Tolerating clear liquids and made plan to advance diet as tolerated.
--- NOTE | 2024-01-06 13:14 | NUR ---
Patient resting in bed after babe. Family at bedside. Michael returns to bedside and set up for rest time with patient. Lights dimmed. Patient provided with 0.5 tab of PRN pain medication for 7/10 pain to L arm. L arm remains elevated on pillow, cap refill WNL, CMS intact.
[2024-01-06] MEDS ORDERED: CEFAZOLIN SODIUM 2 GM/20 ML SYR IV SCH (14:00)
--- NOTE | 2024-01-06 14:31 | NUR ---
UR CLINICAL REVIEW: [facility] MEETS INPATIENT CCU CRITERIA [facility]CCO 01/05/24 @ 2655 YES; [facility] FA[facility], AUTH PENDING PLAN TO DC TO HOME.
--- NOTE | 2024-01-06 14:50 | NUR ---
Patient medicated with percocet PRN. Per patient request only half tab given with each administration. Patient states feeling "itchy", reports it being tolerable, but full bed bath provided per this RN with soap and water. Patient states relief found. Geller cath draining WNL. Facial edema decreased significantly.
[2024-01-06 16:08] LABS: BASOPHILS 0.3 % (0-2); HEMATOCRIT 22.3 % (35.0-50.0); HEMOGLOBIN 7.4 g/dL (12.0-18.0); LYMPHOCYTES 6.7 % (24-44); MCH 27.4 (27-36); MCV 83.1 fl (81-99); MONOCYTES 4.4 % (0-12); NEUTROPHILS 88.6 % (39-80); PLATELET COUNT 162 K/uL (140-440); RBC 2.69 M/ul (4.3-5.7)
--- NOTE | 2024-01-06 16:55 | NUR ---
Baby finishes with good latch noted. Skin to skin with mom. IVF infusing WNL. Pt resting in bed and states no needs at this time. Family in room.
--- NOTE | 2024-01-06 17:57 | NUR ---
Baby being held by mom, family at bedside, mom eating her dinner. Requests pain medication, administered 0.5 tab of percocet and PRN motrin. Patient also given simethecone.
--- NOTE | 2024-01-06 18:45 | NUR ---
Patient given I.S. and demonstrates competency.
[2024-01-06] MEDS ORDERED: SODIUM BICARBONATE 50 MEQ in SODIUM CHLORIDE 0.45% 1,000 ML IV SCH (19:00)
--- NOTE | 2024-01-06 19:04 | NUR ---
This RN notifies Dr Caldera of patient recent lab values, temperature and pain level. Orders received for 1 amp of bicarb in IVF, urinalysis with PH, and change in pain medication PRN, see emar. Dr Curry also notified.
[2024-01-06] MEDS ORDERED: OXYCODONE HCL 5 MG TAB PO PRN (19:15)
--- NOTE | 2024-01-06 19:30 | NUR ---
BEDSIDE SHIFT REPORT RECEIVED. PATIENT REST IN BED. DENIED ANY CONCERNS AT THIS TIME. WOULD LIKE TO GET UP SOON TO SIT TO THE EDGE OF THE BED. LEFT ARM IS COVERED WITH KERLEX AND JOANN WRAP BANDAGE. SMALL AMOUNT OF WEEPING NOTED ON CHUCKS PAD. CMS INTACT IN LEFT HAND. PATIENT MOVES HAND SLOWLY BUT WITHOUT PAIN.
--- NOTE | 2024-01-06 20:00 | NUR ---
PATIENT UP TO THE BEDSIDE. PATIENT ABLE TO MOVE WITH SOME ASSISTANCE. PATIENT SUPPORTING LEFT ARM WELL. PATIENT AMBULATED SLOWLY WITH STABLIZING HELP FROM THIS RN. PATIENT DENIED DIZZINESS WITH AMBULATION. PATIENT ASSISTED WITH RAMO CARE USING WATER WATER AND RAMO BOTTLE. FRESH PAD APPLIED. PATIENT HAS SCANT VAGINAL BLEEDING. KELLER CARE DONE. PATIENT RETURNED TO BED. POSITIONED FOR COMFORT. LEFT ARM ELEVATED. SCDs IN PLACE. IV FLUIDS PER ORDER, IV SITES WNL X2. VS STABLE. PATIENT HAS FAMILY AT BEDSIDE.
[2024-01-06] MEDS ORDERED: SODIUM BICARBONATE 50 MEQ/50 ML VIAL ONE (20:20)
--- NOTE | 2024-01-06 21:35 | NUR ---
UPDATE PROVIDED TO DR. PENA. PLAN OF CARE REVIEWED. VERBAL ORDER TO CHANGE DRESSING IF NEEDED ON LEFT ARM.
--- NOTE | 2024-01-06 21:45 | NUR ---
PATIENT MEDICATED FOR PAIN 5/10, MOSTLY IN LEFT HAND/ARM. PATIENT ATTEMPTING TO BREASTFEED BABY. FAMILY AT BEDSIDE TO ASSIST.
[2024-01-06] MEDS ORDERED: ACETAMINOPHEN 500 MG TAB PO SCH (22:00)
--- NOTE | 2024-01-06 23:00 | NUR ---
PATIENT ATTEMPTING TO BREASTFEED BABY. FAMILY AT BEDSIDE TO ASSIST. PATIENT VS STABLE. DENIED CONCERN AT THIS TIME.
[2024-01-07] VITALS (26 sets, daily range): BP systolic 98–154; BP diastolic 61–92
--- NOTE | 2024-01-07 00:15 | NUR ---
PATIENT ASSISTED TO REPOSITION IN BED. LEFT ARM HURTING DUE TO POSITIONING. ASSISTED PATIENT TO REPOSITION. CMS INTACT, GENERALIZED EDEMA NOTED IN LEFT HAND/FINGERS. CONTINUE TO KEEP LEFT EXTREMITIY ELEVATED. PATIENT VS STABLE. ORAL TEMP WNL. IV SITES WNL X2. FAMILY AT BEDSIDE. DISCUSSED POC AND PAIN MANAGEMENT. PATIENT VERBALIZED UNDERSTANDING. WARM BLANKET PROVIDED FOR COMFORT. CALL LIGHT IN REACH.
--- NOTE | 2024-01-07 02:30 | NUR ---
PATIENT RESTING IN BED. EYES CLOSED. FAMILY AT BEDSIDE. BABY IN BASSINET. PATIENT VS STABLE. LEFT ARM ELEVATED. ALLOWED PATIENT TO REST. CALL LIGHT IN REACH.
--- NOTE | 2024-01-07 04:08 | NUR ---
PATIENT PROVIDED PRN PAIN MEDS FOR PAIN IN LEFT ARM AND LOWER ABD. PATIENT ASSISTED TO REPOSITION. CMS INTACT IN LEFT ARM. ARM REMAINS ELEVATED WITH MINIMAL NEW DRAINAGE NOTED. ABD SITE IS CDI, NO NEW DRAINAGE. KELLER IN PLACE, DRAINING FREELY. OUTPUT QS. IV SITE WNL X2. IVF PER ORDER. PATIENT VS STABLE. ENCOURAGED PATIENT TO REST. PATIENT FAMILY AT BEDSIDE TENDING TO BABY. NO OTHER NEEDS AT THIS TIME. CALL LIGHT IN REACH.
[2024-01-07 05:18] LABS: HEMATOCRIT 16.6 % (35.0-50.0); MCH 27.8 (27-36); MCHC 33.2 g/dl (30-36); MCV 83.8 fl (81-99); RBC 1.99 M/ul (4.3-5.7); RDW 15.3 (10.5-15.0)
[2024-01-07 05:19] LABS: BILIRUBIN, URINE NEGATIVE (negative); BLOOD/HGB, URINE NEGATIVE (Negative); KETONE, URINE NEGATIVE (Negative); LEUK ESTERASE, URINE NEGATIVE (negative); NITRITE, URINE NEGATIVE (negative); PH, URINE 6.5 (5-7)
[2024-01-07 05:20] LABS: HEMOGLOBIN 5.5 g/dL (12.0-18.0)
[2024-01-07 05:30] LABS: PARTIAL THROMBOPLASTIN TIME 27.7 Sec (22.9-41.3)
[2024-01-07 05:43] LABS: INR 1.08 (0.80-1.30); PROTIME 13.3 Sec (11.2-14.2)
--- NOTE | 2024-01-07 05:52 | NUR ---
UPDATED ON PATIENT'S LABS, SCANT VAGINAL BLEEDING, AND VS. ORDER RECEIVED TO CROSSMATCH AND TRANSFUSE 2 UNITS PRBC.
[2024-01-07 06:08] LABS: IS CROSSMATCH COMPATIBLE
--- NOTE | 2024-01-07 06:30 | NUR ---
PATIENT UPDATED ON PLAN OF CARE, INCLUDING LAB FINDINGS AND NEED FOR ADDITIONAL PRBC TRANSFUSION. PATIENT AND VERBALIZE UNDERSTANDING. ALL QUESTIONS ANSWERED. FIRST UNIT PRBC STARTED PER POLICY WITH NO SIGN OF REACTION. IV SITES WNL X2. PATIENT REPORTS GOOD PAIN CONTROL. NO CHANGES IN ASSESSMENT FINDINGS. ABD SOFT, TENDER NEAR INCISION. MOSTLY AT LOWER ABD SITE. NO GI UPSET. SCANT VAGINAL DRAINAGE NOTED. WEEPING FROM LEFT ARM NOTED, SMALL AMOUNT OVERALL.
[2024-01-07] MEDS ORDERED: diphenhydrAMINE HCL 25 MG CAP PO ONE (07:00)
[2024-01-07] MEDS ORDERED: FAMOTIDINE 20 MG TAB PO PRN (07:15)
--- NOTE | 2024-01-07 07:40 | NUR ---
REPORT RECEIVED FROM STARR CASTRO, PT AWAKE IN BED WITH FAMILY AND IN THE ROOM. IN TO MEET PT, DISCUSS PLAN OF CARE FOR THE DAY WITH IMMIGRATION SPECIALIST RN, INCLUDING PLAN FOR DRESSING CHANGE TO LUE WITH DR PENA. IN ROOM WELL. PT HAS LUE ELEVATED ON PILLOWS ABOVE HEART, 1ST UNIT OF PRBCS IS INFUSING INTO RIGHT AC, NO S/SX OF INFILTRATION OR SWELLING.
--- NOTE | 2024-01-07 07:50 | NUR ---
PT STATED SHE WANTED TO TRY TO MOVE A BIT, ASSISTED TO SITTING UP TO EDGE OF BED AND THEN TO STANDING POSITION. HR WENT UP TO 130, PT DID STATE SHE WAS A LITTLE DIZZY. HAD PT SIT BACK DOWN AND REPOSITION INTO BED. HR BACK DOWN TO 100'S.
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
--- NOTE | 2024-01-07 08:30 | NUR ---
ADAPTIVE PHYSICAL EDUCATOR, THIS RN, DR HARMON AND A FAMILY FRIEND ARE ALL IN ROOM TO DISCUSS THE PATIENT AND HER HUSBANDS CONCERNS AND HUSBANDS INTENT TO TAKE PT AND HAVE HER SIGN OUT AMA. PT AND HER ARE ABLE TO VOICE CONCERNS AND QUESTIONS.
--- NOTE | 2024-01-07 09:45 | NUR ---
DR PENA IN TO DISCUSS PLAN FOR DRESSING CHANGE TODAY WITH PT AND HER WELL DR HARMON, THIS RN, PTS FRIEND AND HYDRAULIC DREDGE OPERATOR. PT IS AGREEABLE, QUESTIONS ANSWERED AND IS AGREEABLE TO THIS WELL AT THIS TIME. PT REITERATES HER REQUEST TO NOT BE PUT UNDER GENERAL ANESTHESIA AND ALL ARE AWARE OF THIS.
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
--- NOTE | 2024-01-07 10:45 | NUR ---
PT DOES NOT WANT TO TAKE OXYCODONE, GIVEN MOTRIN PER EMAR IN ANTICIPATION OF CT SCAN.
--- NOTE | 2024-01-07 11:00 | NUR ---
SECOND UNIT OF PRBC'S TRANSFUSING, PT GETTIN READY TO GO DOWN TO CT WITH THIS RN AND .
--- NOTE | 2024-01-07 11:32 | NUR ---
PT BACK FROM CT AND NOW SETTLED IN BED, DENIES NEED FOR PAIN MEDICATION AT THIS TIME. LEFT ARM ELEVATED ON PILLOWS. AT BEDSIDE. PT REPORTS FEELING TIRED AND WOULD LIKE TO TRY TO TAKE A NAP. HR 80-90'S SINUS RHYTHM.
--- NOTE | 2024-01-07 12:40 | NUR ---
LAB IN TO DRAW
[2024-01-07 12:45] LABS: BASOPHILS 0.3 % (0-2); EOSINOPHILS 0.1 % (0-6); HEMATOCRIT 26.7 % (35.0-50.0); HEMOGLOBIN 8.8 g/dL (12.0-18.0); LYMPHOCYTES 9.3 % (24-44); MCH 28.2 (27-36); MCHC 33.1 g/dl (30-36); MCV 85.2 fl (81-99); MONOCYTES 4.5 % (0-12); NEUTROPHILS 85.8 % (39-80); PLATELET COUNT 125 K/uL (140-440); RBC 3.14 M/ul (4.3-5.7); RDW 15.3 (10.5-15.0)
--- NOTE | 2024-01-07 13:25 | NUR ---
PT TAKEN DOWN TO OR WITH SURGERY RNS.
[2024-01-07] MEDS ORDERED: fentaNYL citrate 100 MCG/2 ML VIAL ONE (13:32)
--- NOTE | 2024-01-07 13:58 | NUR ---
PT BACK FROM OR
--- NOTE | 2024-01-07 14:42 | OR ---
[facility] [address] [place], [place] [address] Signed DATE OF OPERATION: 01/06/2024 SURGEON: Adrian Pena MD PREOPERATIVE DIAGNOSES: 1. Left arm distal compartment syndrome. 2. 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 Cisneros). POSTOPERATIVE DIAGNOSES: 1. Left arm distal compartment syndrome. 2. 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 Cisneros). PROCEDURES: Left arm volar and dorsal upper extremity fasciotomy and left dorsum of hand fasciotomy. ANESTHESIA: General endotracheal, Neftaly Sierra PLATFORM POWER TECHNICIAN. INDICATION: This 33-year-old white woman delivered her 5th child late yesterday. She had hemorrhage which was significant and non-passage of the placenta, which was not extractable by manual means and significant hemorrhage. She required emergency hysterectomy under the direction of Dr. Cisneros and Dr. Hernandez. She did receive aggressive resuscitation including IV fluids and blood products and was noted to have a fibrinogen level that was about 105. Fresh frozen plasma was administered as well. The patient had infiltration of an IV of the left forearm concurrent to a blood pressure cuff on the same side and was noted upon presentation to the Intensive Care Unit to have cyanosis, swelling and edema of the left arm. The cyanosis improved, but the swelling did not and indeed it worsened. She had significant pain of the forearm and hand and concern was made for possible compartment syndrome. She had pain on extension of the wrist and marked edema and swelling of the hand and volar forearm, and to lesser extent the dorsal forearm. I was directly consulted by Dr. Cisneros, ( though I was not on-call) for assessment at approximately 4:30 a.m. and saw the patient in the Intensive Care Unit. She was hemodynamically stable but did have edema of the hand and forearm and a normal arm above the elbow.High suspicion for compartment syndrome of the left forearm was noted. Electronically Signed By: ADRIAN PENA MD 01/07/24 1442 PATIENT NAME: NOAH KAYE OPERATIVE REPORT DATE OF : [birth year] REPORT #: [id number] PHYSICIAN: ADRIAN PENA MD PCP: ALLEN DEJESUS REPORT IS CONFIDENTIAL AND NOT TO BE RELEASED WITHOUT AUTHORIZATION [facility] [address] [place], [place] [address] Signed There was tenderness to the muscle compartment on the volar forearm and to a lesser extent the thenar eminence. The dorsum had mild tenderness, but significant edema as well. Compartment pressures were obtained of the volar forearm, the dorsal forearm and thenar eminence which showed elevated pressures in the volar forearm. the actual numbers I cannot recall at this time, but were greater than 46 in two elevated compartments. On the basis of that, I have recommended emergency forearm fasciotomy. This would likely include the volar forearm, the carpal tunnel and likely the dorsum of the hand and possibly the dorsal forearm. The patient and her were advised of the urgent nature of this problem and my recommendation for immediate operation. The patient agrees to this plan and the as well, though the remains very hostile and somewhat resistent to my recommendations. The risk of bleeding, infection, nerve injury, failure to improve the compartment syndrome despite every effort to do so were all reviewed with the patient and her and they understand and wish to proceed. The other issue of cosmesis and deformity were also discussed and understood also. FINDINGS: There was significant edema of the forearm and wrist area to be sure and certainly the dorsum of the hand. Fasciotomy included a volar release extending from the antecubital space through the entire forearm and through and including the carpal tunnel release. The deep muscular layer was additionally released. None of the muscle appeared particularly ischemic, though it was edematous and somewhat inflamed. Dorsal release was undertaken as well with similar findings. Metacarpal ( interosseous) release was undertaken. All muscle groups visualized appeared viable. DESCRIPTION OF PROCEDURE: The patient was brought to the operating room and given a general endotracheal anesthetic. 2 g of Ancef was administered in the operating room prior to operation. The left arm was prepared with a DuraPrep solution and draped sterilely. A hand table was used. With loupe magnification, headlight and so forth, a proposed line of incision was drawn on the forearm extending from the medial aspect of the antecubital space with a gentle S configuration initially laterally ultimately through the lower midline and across the area of the carpal canal. An incision was made with a 15 blade and dissection carried through the subcutaneous tissue with electrocautery. Cutaneous nerves that were identified were spared of course. Some small blood vessels were ligated. One dominant cephalic vein appeared to be thrombosed. There was considerable edema of the Electronically Signed By: ADRIAN PENA MD 01/07/24 1442 PATIENT NAME: NOAH KAYE OPERATIVE REPORT DATE OF : [birth year] REPORT #: [id number] PHYSICIAN: ADRIAN PENA MD PCP: ALLEN DEJESUS REPORT IS CONFIDENTIAL AND NOT TO BE RELEASED WITHOUT AUTHORIZATION [address] [place], [place] [address] Signed subcutaneous tissue, but also of the muscular compartment as well. Fasciotomy was undertaken on the superficial portion initially freeing the underlying forearm muscles completely. Forearm muscles were retracted to the radial side revealing the deep compartment. This was incised with all due care proximally and distally as well. That muscular compartment appeared to be quite viable. The median nerve was identified in the depths of the wound. The incision was taken over the area of the wrist. A lead hand retractor was placed as well as a rolled blue towel behind the wrist allowing for good extension of the wrist thus allowing for safe carpal tunnel release as well. The median nerve appeared to be normal otherwise. Irrigation was undertaken and hemostasis assured with electrocautery. The hand was pronated and the dorsum of the hand which had considerable edema as well was appropriate for fascial release also. longitudinal incisions were made on the radial and ulnar side. Fasciotomy was made for the interosseus muscles. Examination of the dorsal lower arm showed a fair amount of edema as well. A dorsal compartment release was considered advisable under the circumstances of her situation. A linear incision was made in the dorsum of the forearm extending distally. Dissection through the subcutaneous space and the edematous tissue was without problem. Cutaneous branches of the radial nerve were identified and meticulously spared. The muscular compartment was incised longitudinally freeing the muscle laterally and medially as far as possible down to the dorsum of the wrist. Irrigation was undertaken and hemostasis assured with electrocautery. A dynamic yellow vessel loop closure technique was used on all of the wounds. Dressing of the wounds included moist and saline Kerlix over the open wounds followed by Kerlix wrap and ultimately an Jun wrap. The extremity appeared to be viable. The radial artery was palpable and good perfusion appeared secured. She was ultimately extubated and transferred to the recovery room in good condition having suffered no complication. A creatine kinase enzyme was obtained preoperatively which was somewhat higher than the upper end of normal but was not profoundly elevated. Her preoperative hemoglobin was 8.4. Blood loss is less than 50 mL in aggregate. MD URBAN Sargent/ELISEOL Electronically Signed By: ADRIAN PENA MD 01/07/24 1442 PATIENT NAME: NOAH KAYE OPERATIVE REPORT DATE OF : [birth year] REPORT #: [id number] PHYSICIAN: ADRIAN PENA MD PCP: ALLEN DEJESUS REPORT IS CONFIDENTIAL AND NOT TO BE RELEASED WITHOUT AUTHORIZATION [facility] [address] [facility] [place], [place] [address] Signed /[id number] cc: Howie Cisneros DO Copies: HOWIE CISNEROS (RONI) ~ Electronically Signed By: ADRIAN PENA MD 01/07/24 1442 PATIENT NAME: NOAH KAYE OPERATIVE REPORT DATE OF : [birth year] REPORT #: [id number] PHYSICIAN: ADRIAN PENA MD PCP: ALLEN DEJESUS REPORT IS CONFIDENTIAL AND NOT TO BE RELEASED WITHOUT AUTHORIZATION
--- NOTE | 2024-01-07 14:42 | CONS ---
[facility] [address] [place], [place] [address] Signed DATE OF CONSULTATION: 01/06/2024 TIME: 5:30 a.m. REQUESTING PHYSICIAN: Howie Cisneros DO. ISSUE: Possible left lower arm compartment syndrome. HISTORY OF PRESENT ILLNESS: This 33-year-old white woman is a patient of Dr. Cisneros and underwent her 5th vaginal delivery late last night. There was no presentation of the placenta and ultimately she was noted to have profound bleeding and ultimately found to have placenta accreta. She required emergency hysterectomy on that basis. She had about 7 L of crystalloid fluid as well as blood transfusion performed during the operation. She additionally had an infiltrated IV on the left arm and the arm also had a blood pressure cuff. She returned to the intensive care unit approximately 11:00 p.m. or so, was stabilized and was found by her nurse (Lolita) to have some distortion of her left wrist and arm and forearm and a cyanotic appearance initially. Concern was raised for the possibility of compartment syndrome related to infiltrated IV and other factors. Though I was not on-call, I was summoned by Dr. Cisneros to assist in evaluation and treatment of this problem. The patient was initially managed with a light dressing to the infiltrated area of IV, which is on the volar left wrist and with some arm elevation. She initially had numbness and tingling, but clearly had excessive and extreme pain of the muscle compartment. She had some distortion of her wrist and fingers in relation to the problem. PAST MEDICAL HISTORY: Primarily that of childbirth so far as I know. REVIEW OF SYSTEMS: She says she has improved pain of her left hand and forearm. She denies much incisional pain related to recent laparotomy incision. She says she does feel her fingers and left forearm. PHYSICAL EXAMINATION: GENERAL: A pleasant white woman, who looks to be hemodynamically stable. VITAL SIGNS: Her heart rate is 117. Her blood pressure is 126 systolic. Electronically Signed By: ADRIAN PENA MD 01/07/24 1442 PATIENT NAME: NOAH KAYE CONSULTATION DATE OF : [birth year] REPORT #: [id number] PHYSICIAN: ADRIAN PENA MD PCP: ALLEN DEJESUS REPORT IS CONFIDENTIAL AND NOT TO BE RELEASED WITHOUT AUTHORIZATION [facility] [address] [place], [place] [address] Signed EXTREMITIES: Her right upper extremity is normal in appearance and function. On the left upper extremity, she has a immobile appearance of her wrist and fingers. Light touch sensation is intact in the radial and ulnar and median nerve distribution currently. She has no swelling above the elbow. The forearm is tender to palpation on the volar aspect and not so much on the dorsal aspect. She has a fair amount of swelling of the thenar eminence and dorsum of hand. She is able to move her fingers, but with restriction due to edema. There is no evidence of cyanotic change. The radial pulse is palpable. She has extreme pain of the volar forearm with extension of the left forearm. Tenderness is noted as well. [place] pressures were performed (see separate dictation). This showed a dorsal forearm pressure of approximately 22, a volar pressure of 56, interosseous dorsal pressure of 12, and a thenar eminence pressure of 22. ASSESSMENT: I discussed with the patient as well as her , who is present the high probability of a compartment syndrome. This is multifactorial in her situation. I previously ordered a CK enzyme assessment which will have little bearing on what needs to be done at the moment. She appears to have compartment syndrome of the volar forearm for which I would recommend operative fasciotomy. I discussed the pathophysiology of the problem with the (patient) who fully understands and wishes to proceed with a forearm decompression. Her is hostile and disgruntled about all the events that have gone before, but does agree to proceed as I have recommended. I discussed with them both in the presence of the nursing staff, the risk of bleeding, infection, nerve injury or ischemic change, cosmetic deformity, and so forth. I do not believe that delay or watchful waiting would be appropriate at this point. The risk of ischemic contracture and other adverse findings would certainly result with unnecessary delay and risk of extremity loss would be high. They do recognize and understand this. We will proceed with operation forthwith and are some summoning the operative team at this time. Adrian Pena MD JM/MODL /[id number] Electronically Signed By: ADRIAN PENA MD 01/07/24 1442 PATIENT NAME: NOAH KAYE CONSULTATION DATE OF : 89 REPORT #: [id number] PHYSICIAN: ADRIAN PENA MD PCP: ALLEN DEJESUS REPORT IS CONFIDENTIAL AND NOT TO BE RELEASED WITHOUT AUTHORIZATION [address] [place] [address] Signed cc: TALITA Tran DO Copies: HOWIE CISNEROS (RONI) ~ Electronically Signed By: ADRIAN PENA MD 01/07/24 1442 PATIENT NAME: NOAH KAYE CONSULTATION DATE OF : 89 REPORT #: [id number] PHYSICIAN: ADRIAN PENA MD PCP: ALLEN DEJESUS REPORT IS CONFIDENTIAL AND NOT TO BE RELEASED WITHOUT AUTHORIZATION
--- NOTE | 2024-01-07 14:57 | NUR ---
DR PENA IN TO TALK WITH PT AND HER , DISCUSSED ELEVATION OF LE WELL ENCOURAGED HER TO MOVE FINGERS AND WRIST.
--- NOTE | 2024-01-07 15:27 | NUR ---
CALL TO DR HARMON TO UPDATE HIM ON THE NEWEST LAB RESULTS, PT REQUESTING HYDROCODONE INSTEAD OF OXYCODONE, ORDER GIVEN FOR NORCO Q4 PRN.
[2024-01-07] MEDS ORDERED: HYDROCODONE/ACETA 5/325 TAB PO PRN (15:30)
--- NOTE | 2024-01-07 15:57 | NUR ---
IN TO GIVE PAIN MEDICATION FOR 7/10 LE PAIN AND DO ASSESSMENT. PT IS HER BABY, NORCO GIVEN, WILL RETURN IN 30 MINUTES. FAMILY AT BEDSIDE HELPING PT WITH BABY, NO REQUESTS AT THIS TIME, CALL LIGHT IN REACH.
--- NOTE | 2024-01-07 17:36 | NUR ---
IN TO CHECK ON PT, SHE IS SON. STATES SHE MOVED LEFT HAND AND ARM AND NOW PAIN IS 9/10, ADDITIONAL NORCO TAB GIVEN.
--- NOTE | 2024-01-07 18:00 | NUR ---
PT STATES SHE FEELS LIKE SHE WANTS TO MOVE MORE, IS UNCOMFORTABLE IN THE BED. ASSISTED FIRST TO SITTING POSITION, HR STEADY AND DENIES LIGHTNEADEDNESS/DIZZINESS. 2PA, PT WAS ASSISTED TO STANDING AND THEN TO TAKE A COUPLE OF STEPS TO CHAIR AND WAS HELPED TO POSITION IN CHAIR. WANTS TO SIT UP IN CHAIR FOR A WHILE, CALL LIGHT IN REACH, IN ROOM WITH BABY.
--- NOTE | 2024-01-07 19:30 | NUR ---
SHIFT REPORT RECEIVED. PATIENT RESTING IN RECLINER. REQUEST PRN MOTRIN WHICH WAS PROVIDED BY YAIR CASTRO. PATIENT DENIED OTHER NEEDS. FBC RN IN TO ASSIST WITH EDUCATION AND ASSISTANCE. CALL LIGHT IN REACH.
--- NOTE | 2024-01-07 20:38 | NUR ---
PATIENT REPORTS BETTER PAIN CONTROL. RESTING IN RECLINER. VS STABLE. PATIENT PROVIDED WARM BLANKET. PLANS TO NAP FOR AN HOUR. ROOM LIGHTS DIMMED. FAMILY IN ROOM.
--- NOTE | 2024-01-07 21:50 | NUR ---
PATIENT PROVIDED FOOD; WHICH SHE ATE ABOUT 50%. NO GI UPSET; PATIENT REPORTS POOR APPETITE. SCHEDULED MEDS PROVIDED INCLUDING TYLENOL. PATIENT REPORTS PAIN 6-7/10 IN LEFT ARM. STATES "I'M OKAY RIGHT NOW THOUGH" AND APPEARS COMFORTABLE. PRN NORCO OFFERED AND DECLINED. PATIENT VS STABLE. IV SITES WNL X2. LEFT ARM ELEVATED ON PILLOWS. KELLER DRAINING CLEAR YELLOW URINE. KELLER EMPTIED AND CATH CARES DONE. ABD DRESSING IS CDI. LEFT ARM DRESSING CDI WITH NO SIGN OF DRAINAGE NOTED. FINGERS ON LEFT HAND ARE WARM TO TOUCH. CMS INTACT. PATIENT REPORTS OVERALL SHE FEELS LESS SWOLLEN TODAY. NOTED HER FACE AND RIGHT ARM ARE LESS SWOLLEN THAN PREVIOUS SHIFT. LEFT FINGERS APPEAR LESS TIGHT WELL. PATIENT'S FAMILY IN ROOM. WARM BLANKETS PROVIDED. NO OTHER NEEDS AT THIS TIME. CALL LIGHT IN REACH.
--- NOTE | 2024-01-07 22:46 | NUR ---
4MG MORPHINE FOR TACHYCARDIA AND SLIGHT WHEEZING
[2024-01-08 01:00] VITALS: BP 106/65
--- NOTE | 2024-01-08 01:00 | NUR ---
PATIENT PROVIDED PRN PAIN MEDS FOR 8/10 PAIN IN HER LEFT ARM. PATIENT VS STABLE. PATIENT CONTINUES TO REST IN THE RECLINER PER REQUEST. ATTEMPTING TO SLEEP OFF AND ON. DENIED ANY FURTHER NEEDS AT THIS TIME.
--- NOTE | 2024-01-08 04:00 | NUR ---
PATIENT UP TO THE BATHROOM WITH 1PA. PATIENT TOLERATES WELL, REPORTS BEING SORE AND MOVES SLOWLY. NO DIZZINESS. PATIENT ASSISTED WITH RAMO CARE AND KELLER CARE DONE. PATIENT CONTINUES TO HAVE SMALL AMOUNT OF VAGINAL BLEEDING. PAD CHANGED AT THIS TIME. PATIENT RETURNED TO RECLINER. SNACK AND PROTEIN DRINK PROVIDED. PATIENT ALSO PROVIDED PRN MOTRIN AT THIS TIME FOR PAIN 4/10, MOSTLY IN LEFT ARM. PATIENT CONCERNED ABOUT BECOMING CONSTIPATED. EDUCATION PROVIDED ON BOWEL CARE, PATIENT VERBALIZED UNDERSTANDING. CALL LIGHT IN REACH.
[2024-01-08 05:27] LABS: BASOPHILS 0.5 % (0-2); EOSINOPHILS 0.6 % (0-6); HEMATOCRIT 27.3 % (35.0-50.0); HEMOGLOBIN 9.1 g/dL (12.0-18.0); LYMPHOCYTES 15.3 % (24-44); MCH 28.5 (27-36); MCHC 33.2 g/dl (30-36); MCV 85.9 fl (81-99); MONOCYTES 4.2 % (0-12); NEUTROPHILS 79.4 % (39-80); PLATELET COUNT 123 K/uL (140-440); RBC 3.18 M/ul (4.3-5.7); RDW 15.5 (10.5-15.0)
[2024-01-08 05:32] LABS: HEMATOCRIT 27.1 % (35.0-50.0); HEMOGLOBIN 9.1 g/dL (12.0-18.0); MCH 28.7 (27-36); MCHC 33.4 g/dl (30-36); RBC 3.15 M/ul (4.3-5.7); RDW 15.3 (10.5-15.0)
[2024-01-08 05:46] LABS: ANION GAP 12.5 (7-21); CALCIUM 7.3 mg/dL (8.5-10.1); CREATININE, SERUM 0.7 mg/dL (0.55-1.02); POTASSIUM 3.5 mmol/L (3.5-5.1)
[2024-01-08 06:15] VITALS: BP 114/81
--- NOTE | 2024-01-08 06:29 | NUR ---
PATIENT RESTING IN RECLINER WITH BABY IN LAP. LEFT ARM ELEVATED ON PILLOWS. PATIENT REPORTS SHE HAS BEEN DOING SOME EXERCISES WITH HER WRIST AND FINGERS. PAIN 6/10. SCHEDULED TYLENOL PROVIDED. VS STABLE. DISCUSSED GOALS FOR THE DAY WITH PATIENT AND ANSWERED ALL QUESTIONS. NO OTHER NEEDS AT THIS TIME. AT BEDSIDE. CALL LIGHT IN REACH.
--- NOTE | 2024-01-08 07:40 | NUR ---
REPORT RECEIVED FROM STARR CASTRO. IN TO CHECK ON PT, SHE IS SITTING UP IN CHAIR BABY. IN ROOM WELL. RESTING HR 70'S. PT IS AWAKE AND ALERT, LEFT ARM ELEVATED ON PILLOWS. PT IS REQUESTING COFFEE, WILL BRING SOME IN. WHEN ASKED ABOUT PAIN LEVEL PT REPLIES "ITS THERE" AND THAT SHE WOULD LIKE PAIN MEDICATION IF POSSIBLE. IVF INFUSING AT 75ML/HR AND KELLER DRAINING CLEAR YELLOW URINE. CALL LIGHT IN REACH.
[2024-01-08 08:47] VITALS: BP 102/87
--- NOTE | 2024-01-08 09:18 | NUR ---
CALL TO DR PENA TO DISCUSS PAIN CONTROL, NEW ORDERS RECEIVED FOR PAIN MEDICATION.
[2024-01-08] MEDS ORDERED: HYDROmorphone HCL 2 MG TAB PO PRN (09:30)
--- NOTE | 2024-01-08 09:50 | NUR ---
IN TO GIVE PAIN MEDICATION, PO DILAUDID FOR 6/10 LEFT ARM PAIN. PT REMAINS UP IN CHAIR, FAMILY IN TO VISIT, IN ROOM ALSO.
--- NOTE | 2024-01-08 09:58 | NUR ---
DR HARMON IN TO SEE PT.
--- NOTE | 2024-01-08 10:30 | NUR ---
PHYSICAL THERAPY IN TO DO EVAL AND TREAT WITH PT
--- NOTE | 2024-01-08 11:00 | NUR ---
PT C/O SOME GAS PAIN, SIMETHICONE PRN WAS GIVEN. KELLER WAS D/C'D WITH 10ML WATER OUT OF BALLOON. PT THEN AMBULATED INTO BATHROOM TO TRY TO SIT ON THE TOILET. DID HAVE SMALL AMNT OF URINE OUT ALONG WITH SOME VAGINAL BLOOD/SPOTTING-SMALL AMOUNT WELL. PT THEN AMBULATED BACK TO BED SHE IS TIRED AND NOW AND WANTING TO REST. LEFT ARM ELEVATED UP ON PILLOWS AND PT GIVEN ADDITIONAL PAIN MEDICATION PAIN STILL 7-8/10. REMAINS IN ROOM, CALL LIGHT IN REACH.
[2024-01-08 11:29] LABS: ABO B; ANTIBODY SCREEN NEGATIVE; RH NEGATIVE
--- NOTE | 2024-01-08 11:30 | NUR ---
DR PENA IN TO SEE PT
[2024-01-08] MEDS ORDERED: SERTRALINE HCL50 MG PO (11:45)
[2024-01-08] MEDS ORDERED: SERTRALINE HCL 50 MG TAB PO SCH (11:47)
--- NOTE | 2024-01-08 12:03 | NUR ---
WENT IN TO GIVE PT HER LUNCH ASKED HER IF HE WANTED LUNCH HE DENIED. PT ASKED FOR SOME JUICE AND GOT HER SOME. ASKED IF SHE NEEDED ANYTHING ELSE AND SHE DENIED. CALL LIGHT IS WITHIN REACH.
[2024-01-08 12:41] VITALS: BP 116/67
--- NOTE | 2024-01-08 12:43 | NUR ---
PT CALLED AND SAID SHE NEEDED TO USE THE RESTROOM. I WAS STANDING BY WHILE SHE WALKED TO THE RESTROOM. SHE ASKED FOR A NEW PAD AND WAS ABLE TO WIPE HERSELF. EMPTIED THE TRASH CAN WHILE IN THERE ALL OF THEM. PT ASKED FOR SOME JUICE AND MORE WATER. PT WANTED TO REST AND DIDNT NEED ANYTHING ELSE AND CALL LIGHT IS WITHIN REACH.
--- NOTE | 2024-01-08 13:02 | NUR ---
IN TO CHECK ON PT, PT IS BABY, AT BEDSIDE, DENIES NEEDS AT THIS TIME.
--- NOTE | 2024-01-08 14:41 | NUR ---
PT HAS JUST WOKEN UP FROM [place], STATES SHE WAS ABLE TO "SLEEP FOR A COUPLE GOOD HOURS". NOW SHE IS UNCOMFORTABLE IN BED, C/O 6/10 ARM PAIN, PRN MEDS GIVEN SEE EMAR. PT ASSISTED UP TO SIT AT EDGE OF BED, THEN OUT TO AMBULATE IN THE [facility]SAR[facility] TO DIRTY UTILITY ROOM AND BACK. HR UP TO 100 WHILE UP, THEN BACK DOWN TO 70'S ONCE BACK IN BED. SHE IS BACK TO RESTING IN BED WITH LEFT ARM ELEVATED. ASSISTED WITH GETTING INTO POSITION TO BREASTFEED BABY. IN ROOM ALSO AND ASSISTING, CALL LIGHT IN REACH.
[2024-01-08 15:29] VITALS: BP 116/72
--- NOTE | 2024-01-08 15:33 | NUR ---
PT UP TO BATHROOM, SAT ON TOILET ABOUT 10 MINUTES AND WAS ABLE TO HAVE A SMALL BOWEL MOVEMENT. PT THEN WANTING TO GET CLEANED UP, SAT IN SHOWER AND CLEANED UP WITH SPRAYER WITH LEFT ARM PROTECTED AND ELEVATED. PT THEN ASSISTED BACK TO BED, ASSESSMENT DONE, VS DONE. PT RTAES PAIN 3/10 IN LEFT ARM, DENIES ABD PAIN AT REST. PT NOW RESTING BACK IN BED WITH AND BABY IN ROOM, OTHER FAMILY VISITORS IN TO SEE PT WELL.
--- NOTE | 2024-01-08 16:18 | NUR ---
PT RESTING IN BED, BABY, NO NEEDS AT THIS TIME.
--- NOTE | 2024-01-08 17:03 | NUR ---
PT CALLED SHE NEEDED TO USE THE RESTROOM. I WAS JUST STANDING BY WHILE SHE WALKED TO THE RESTROOM. I GAVE HER PRIVACY, RESTOCKED SOMETHINGS AND FIXED HER BED. PT HAD A LARGE BM AND WIPED HERSELF. PT WANTED ANOTHER ORANGE JUICE AND DIDNT WANT ANYTHING. CALL LIGHT IS WITHIN REACH AND THEY DIDNT NEED ANYTHING ELSE FROM ME.
--- NOTE | 2024-01-08 17:09 | NUR ---
SUPERVISOR PA[employer] PLANT IN TO SEE PT.
--- NOTE | 2024-01-08 17:24 | NUR ---
PT CALLS TO REPORT SHE IS HAVING WORSE ANXIETY, REPORTS "THREE PANIC ATTACKS OVER THE LAST HOUR" AND IS REQUESTING ANXIETY MEDICATION. CALL TO DR HARMON, ORDER GIVEN FOR PTS HOME DOSE OF VISTAR[place] PRN.
[2024-01-08] MEDS ORDERED: hydrOXYzine pamoate 25 MG CAP PO PRN (17:30)
--- NOTE | 2024-01-08 18:26 | NUR ---
PT CONTINUES TO REPORT SHE FEELS ANXIOUS AND IS HAVING A HARD TIME GETTING ANXIETY UNDER CONTROL. HAD LONG TALK WITH PT, SHE IS TEARFUL AT TIMES, DISCUSSING THE OVERWHELMING STRESS AND SADNESS AT NOT BEING ABLE TO CARE FOR HER BABY THE WAY THAT SHE WANTED TO. PROVIDED REASSURANCE AND ENCOURAGED PT AND HER TO TAKE A NAP. SHE IS GOING TO TRY TO SLEEP NOW, FAMILY IS TAKING BABY FOR A FEW HOURS TO TRY TO LET PT GET SOME SLEEP. DISCUSSED SOME RELAXATION AND BREATHING TECHNIQUES WITH PT, SHE IS GOING TO SEE IF SHE CAN GET ANXIETY UNDER CONTROL AND REST FOR NOW. ASSESSMENT DONE WELL PT GOT UP TO HAVE BOWEL MOVEMENT AND VOID PRIOR TO TRYING TO RELAX AND GET SOME SLEEP.
--- NOTE | 2024-01-08 18:50 | NUR ---
IN TO CHECK ON PT, SHE IS RESTING WITH EYES CLOSED, RESP EVEN AND UNLABORED, HR 70'S AND RR 16. IN CHAIR NEXT TO BED STATES PT IS SLEEPING AT THIS TIME AMD HAS NO REQUESTS AT THIS TIME.
--- NOTE | 2024-01-08 19:00 | NUR ---
PT CALLED TO REPORT THAT SHE WAS ABOUT TO SLEEP AND WOKE SUDDENLY AND ANXIETY WAS "THE WORST ITS EVER BEEN". IS TEARFUL AND LOOKS VERY ANXIOUS IN BED, VERY TENSE AND NOT ABLE TO SLEEP. CALL TO DR HARMON TO DISCUSS PTS CONT ANXIETY, ORDER GIVEN FOR ATIVAN 1MG AND AMBIEN TO HELP PT SLEEP.
[2024-01-08] MEDS ORDERED: LORazepam 2 MG/ML VIAL IV ONE (19:15)
--- NOTE | 2024-01-08 19:30 | NUR ---
REPORT RECEIVED. PATIENT RESTING IN BED EYE CLOSED. HR 70'S. RR 14. Sp02 98% ON ROOM AIR. LEFT ARM ELEVATED ON PILLOWS. CALL LIGHT IN REACH.
[2024-01-08] MEDS ORDERED: ZOLPIDEM TARTRATE 5 MG TAB PO PRN (20:00)
--- NOTE | 2024-01-08 22:00 | NUR ---
PATIENT APPEARS RESTFUL IN BED. FAMILY AT BEDSIDE. ALLOWED PATIENT TO REST DUE TO CONCERN OVER POOR SLEEP SINCE ADMISSION. PATIENT ON CARDIAC AND PULSE OX MONITORING. HR 60-70'S, SR. Sp02 98% ON ROOM AIR. CALL LIGHT IN REACH. LEFT ARM IS ELEVATED ON PILLOWS.
--- NOTE | 2024-01-08 23:12 | NUR ---
PATIENT RESTING IN BED. DROWSY BUT EYES OPEN WHEN RN ENTERED. PATIENT'S SISTER AND BROTHER IN LAW IN WAITING ROOM WITH PATIENT'S . DISCUSSED WITH PATIENT IF SHE WOULD LIKE TO SEE THEM AND INFORMED HER THEY WERE OFFERING TO TAKE BABY BACK HOME WITH THEM FOR THE NIGHT IF NEEDED. PATIENT AGREED THAT WOULD BE A GOOD PLAN AND DECLINED SEEING THEM. PATIENT ALSO REPORTS GOOD PAIN CONTROL. PATIENT CONTINUES TO BE ANXIOUS BUT DECLINED FURTHER MEDS FOR THIS OR SLEEP. FEELS SHE WILL BE ABLE TO FALL BACK TO SLEEP. CALL LIGHT IN REACH. LEFT ARM CMS INTACT. ELEVATED ON PILLOWS. DRESSING INTACT.
[2024-01-08] MEDS ORDERED: LORazepam 2 MG/ML VIAL IV PRN (23:30)
--- NOTE | 2024-01-09 01:00 | NUR ---
patient appears restful. HR 70'S. BREATHING EVEN AND NONLABORED. CALL LIGHT IN REACH.
[2024-01-09 03:19] VITALS: BP 116/86
--- NOTE | 2024-01-09 03:21 | NUR ---
PATIENT CALLED FOR ASSISTANCE TO THE BATHROOM. PATIENT IS DROWSY AND MOVES SLOWLY. 1PA TO BATHROOM. PATIENT REPORTS FEELING ANXIOUS. ASSISTED PATIENT TO THE RECLINER. VS STABLE. HR 90'S WITH ACTIVITY, 70'S AT REST. PATIENT FEELS "TIGHTNESS" IN HER CHEST, DENIES PAIN OR FEELING SOB. LUNG SOUNDS ARE CLEAR. PATIENT DECLINES PAIN MEDS AND ANTIANXIETY MEDS AT THIS TIME. PAIN 3/10 IN HER LEFT ARM AND ABD WITH MOVEMENT. CMS INTACT IN LEFT ARM. ABD IS SOFT AND MILDLY TENDER. BOWEL SOUNDS ACTIVE. ASSISTED PATIENT TO POSITION FOR COMFORT. PATIENT ATTEMPTING TO REST. AT BEDSIDE.
[2024-01-09 05:13] LABS: BASOPHILS 0.5 % (0-2); EOSINOPHILS 0.3 % (0-6); HEMOGLOBIN 9.7 g/dL (12.0-18.0); LYMPHOCYTES 9.3 % (24-44); MCH 28.6 (27-36); MCHC 33.3 g/dl (30-36); MONOCYTES 4.3 % (0-12); NEUTROPHILS 85.6 % (39-80); PLATELET COUNT 163 K/uL (140-440); RBC 3.38 M/ul (4.3-5.7); RDW 15.6 (10.5-15.0)
[2024-01-09 05:21] LABS: ANION GAP 14.5 (7-21); BUN/CREATININE RATIO 8.33 (6.0-28.6); CALCIUM 7.4 mg/dL (8.5-10.1); CREATININE, SERUM 0.6 mg/dL (0.55-1.02); POTASSIUM 3.5 mmol/L (3.5-5.1)
[2024-01-09 06:00] VITALS: BP 119/80
--- NOTE | 2024-01-09 06:00 | NUR ---
PATIENT UP TO THE BATHROOM. PATIENT REPORTS FEELING WEAK THIS MORNING. PATIENT ABLE TO WALK STEADY AND UNASSISTED. PATIENT VOIDED AND RETURNED TO RECLINER. VS STABLE. HR 90-100 WITH ACTIVITY, 70'S AT REST. LEFT ARM ELEVATED ON PILLOWS. PAIN MEDS PROVIDED FOR PAIN 7/10. PEPCID AND ZOFRAN GIVEN FOR UPSET STOMACH AND NAUSEA. NOTED PATIENT'S IV IN WRIST IS PAINFUL TO FLUSH AND AC SITE IS LEAKING. 1 ATTEMPT MADE FOR NEW SITE AND FAILED. DC IV SITES X2, WNL. TELMA RN CALLED FOR ASSISTANCE.
--- NOTE | 2024-01-09 06:45 | NUR ---
PATIENT RESTING WITH EYES CLOSED. UPDATE GIVEN TO ON PLAN FOR THE DAY. ALL QUESTIONS ANSWERED.
--- NOTE | 2024-01-09 07:09 | NUR ---
20G, 1.75" USIV PLACED AT 1CM DEPTH WITH 1 ATTEMPT IN THE RFA. PT TOLERATED WELL. FLUSHED WELL, GOOD BLOOD RETURN. EDUCATION PROVIDED CONCERNING IV, PT VERBALIZES UNDERSTANDING OF EDUCATION. PT STATES NO OTHER NEEDS. CALL LIGHT IN REACH.
--- NOTE | 2024-01-09 07:30 | NUR ---
REPORT RECEIVED FROM STARR CASTRO.
--- NOTE | 2024-01-09 07:35 | NUR ---
UPDATE PROVIDED TO , ORDERS FOR MAG REPLACEMENT RECEIVED. SEE EMAR.
[2024-01-09] MEDS ORDERED: LACTATED RINGER'S 1,000 ML IV SCH (07:45)
[2024-01-09] MEDS ORDERED: MAGNESIUM SULFATE 2 GM/50 ML BAG IV ONE (07:45)
--- NOTE | 2024-01-09 08:30 | NUR ---
PT RESTING WITH EYES CLOSED, RESP EVEN AND UNLABORED, HR 70'S SR, RR 12. IN WITH PT, STATES SHE WAS ABLE TO GET SOME SLEEP LAST NIGHT ALTHOUGH SHE DID WAKE UP EARLIER THIS MORNING WITH ANOTHER ANXIETY ATTACK BUT WAS ABLE TO GET BACK TO SLEEP.
--- NOTE | 2024-01-09 08:54 | NUR ---
IN TO CHECK ON PT, SHE CONT TO REST WITH EYES CLOSED, RESP EVEN AND UNLABORED, RR 12 AND HR 70, IVF INFUSING, CALL LIGHT IN REACH.
--- NOTE | 2024-01-09 09:10 | NUR ---
PT CALLS WITH NEED TO GO TO BATHROOM, ASSISTED INTO BATHROOM AND PT SAT ON TOILET APPROX 5 MINUTES, WAS ABLE TO VOID 300 ML YELLOW URINE, THEN REQUESTED TO GO FOR A WALK. OUT TO AMBULATE IN HALLWAY OUT TO ROOM 128 AND THEN BACK TO BED. HR WAS 90'S WHILE AMBULATING, DENIED ANY DIZZINESS/LIGHTHEADEDNESS AND WAS STEADY ON HER FEET, SBA WITH AT SIDE WELL AND PT KEPT LEFT ARM ELEVATED WHILE WALKING. SHE WAS THEN HELPED TO GET POSITIONED IN BED WITH LEFT ARM ELEVATED. REMINDED OF NPO STATUS FOR ANTICIPATED DRESSING CHANGE. C/O SLIGHT PAIN IN LEFT ARM, DENIES ABD PAIN, DENIES NEED FOR PAIN MEDICATION AT THIS TIME. DENIES NAUSEA. ASSESSMENT DONE, LUNGS CLEAR, GILBERT TO ABD INC INTACT AND WELL APPROXIMATED WITH NO DRAINAGE NOTED, ABD SOFT. EDEMA TO LEFT ARM CONTINUES TO DECREASE, COLOR MORE PINK TODAY IN FINGERS, PT REPORTS INCREASED RANGE OF MOTION IN WRIST AND FINGERS. DRESSING INTACT, NO NEW DRAINAGE NOTED ON IT. IVF INFUSING WELL MAGNESIUM REPLACEMENT INTO NEW RFA IV SITE, IV SITE INTACT WITH GOOD BLOOD RETURN NOTED AND NO S/SX OF INFILTRATION. PT IS ALERT AND ORIENTED, STATES SHE FEELS BETTER AFTER SLEEPING LAST NIGHT BUT STILL FEELS A LITTLE WEAK, DENIES ANY ANXIETY AT THIS TIME. AT BEDSIDE, CALL LIGHT IN REACH AND NO FURTHER NEEDS AT THIS TIME.
[2024-01-09 09:22] VITALS: BP 114/74
--- NOTE | 2024-01-09 09:51 | NUR ---
DR PENA IN TO SEE PT AND DISCUSS PLAN FOR DRESSING CHANGE TODAY WITH PT AND . BOTH ARE AGREEABLE AND HAVE NO QUESTIONS AT THIS TIME.
--- NOTE | 2024-01-09 10:02 | NUR ---
DR HARMON IN TO SEE PT
[2024-01-09] MEDS ORDERED: LORazepam 0.5 MG TAB PO PRN (10:15)
--- NOTE | 2024-01-09 12:00 | NUR ---
PT HAS BEEN RESTING SINCE MD LEFT, AWAKENS BRIEFLY, DENIES NEEDS OR NEED FOR PAIN MEDICATION. REMAINS AT BEDSIDE AND LEFT ARM REMAINS ELEVATED.
--- NOTE | 2024-01-09 12:44 | NUR ---
PATIENT SIGNED CONSENT AND THEN PATIENT UP TO BATHROOM, STANDBY ASSIST, VOIDED 250ML URINE YELLOW CLEAR. BACK TO BED TO FEED BABY. NO OTHER REQUESTS AT THIS TIME.
[2024-01-09 14:10] VITALS: BP 118/77
--- NOTE | 2024-01-09 14:22 | NUR ---
PT STITTING UP IN BED BABY, RATES PAIN 2/10, DENIES NEEDS, AT BEDSIDE. VSS.
[2024-01-09] MEDS ORDERED: fentaNYL citrate 100 MCG/2 ML VIAL ONE (15:09)
[2024-01-09] MEDS ORDERED: MIDAZOLAM HCL 5 MG/5 ML VIAL ONE (15:09)
--- NOTE | 2024-01-09 15:34 | NUR ---
PT TO OR FOR DRESSING CHANGE
--- NOTE | 2024-01-09 15:55 | NUR ---
PT BACK FROM OR, DR PENA AT BEDSIDE AND EXPLAINS FINDINGS TO PT AND HER , QUESTIONS ANSWERED. ASSESSMENT DONE. LUP ELEVATED ON PILLOWS, PT IS ALERT AND ORIENTED, REPORTS SOME PAIN IN PALM OF HAND BUT DENIES NEED FOR PAIN MEDICATION. SPO2 100% ON ROOM AIR.
--- NOTE | 2024-01-09 16:45 | NUR ---
01/09/24 1645 Cisneros,Bridget Youssef PATIENT TRANSFERRED FROM OR BACK TO CCU ROOM 126. NO RECOVERY BY PLANER OFFBEARER REQUIRED DUE TO NO AIRWAY IN PLACE. PATIENT TRANSFERRED FROM STRETCHER TO BED INDEPENDENTLY. CCU RN RESUMED CARE OF PATIENT.
[2024-01-09 17:44] VITALS: BP 113/71
--- NOTE | 2024-01-09 18:00 | NUR ---
IN TO CHECK ON PT, SHE IS AWAKE, LEFT ARM ELEVATED. SHE DENIES NEED FOR PAIN MED AT THIS TIME. DRESSING IS CDI. HER HR IS ELEVATED, UP TO 120'S, SHE REPORTS ANOTHER ANXIETY ATTACK AND IS WORKING ON DEEP BREATHING TO RELAX. IS VERY QUIET AND SLOW TO RESPOND AND SOMEWHAT FLAT. DISCUSSED POSSIBLE OPTIONS FOR ANXIETY, AND SHE WANTS TO TRY TO GET HER MIND OFF HER ANXIETY BY GETTING UP AND MOVING AND TAKING A SHOWER. WILL REASSESS AND DECIDE ON NEED FOR MEDICAITON AFTERWARDS.
--- NOTE | 2024-01-09 18:58 | NUR ---
PT HAS HAD LONG SHOWER SITTING IN SHOWER CHAIR WITH SPRAYER ON LEGS AND ABDOMEN WITH LE PROTECTED, PT KEEPING LEFT ARM ELEVATED. SHE REMAINS SOMEWHAT DETACHED AND FLAT AFFECT, ANSWERS QUESTIONS VERY SLOWLY OR NOT AT ALL. AFTER SHOWER SHE DOES SEEM A LITTLE MORE INTERACTIVE, IS GOING WITH BABY BACK HOME AND SHE WILL SPEND SOME TIME SAYING GOODBYE TO THEM AND THEN GO FOR A WALK AND REASSESS ANXIETY LEVEL. HR HAS REMAINED STEADY DURING THIS TIME, DENIES DIZZINESS/LIGHTHEADEDNESS AND HAS BEEN STEADY ON HER FEET. CONTINUES TO BE STRONGER AND MOVING FASTER AND WITH LESS PAIN OVER THE LAST COUPLE OF DAYS.
--- NOTE | 2024-01-09 19:30 | NUR ---
PATIENT UP TO THE BATHROOM. ASSISTED OUT OF BED AND ABLE TO AMBULATE UNASSISTED. PATIENT VOIDED AND RETURNED TO RECLINER. FAMILY IN ROOM TO VISIT. PATIENT REPORTS SOME ANXIETY BUT APPEARS IN GOOD SPIRITS. PROVIDED PROTEIN DRINK AND SNACKS. THEN WARMED UP PATIENT'S DINNER AND PROVIDED THAT. PATIENT REPORTS ADEQUATE PAIN CONTROL AT THIS TIME. NO GI UPSET. OVERALL POOR APPETITE.
--- NOTE | 2024-01-09 19:39 | NUR ---
IN TO CHECK ON PT- PT IS TEARFUL, BABY. WHEN ASKED PT IF SHE IS FEELING ANXIETY OR JUST EMOTIONAL AND SHE STATES "JUST EMOTIONAL", STATES SHE IS UPSET AT NOT BEING ABLE TO HOLD AND CARE FOR HER . COMFORTED PT, THEN AND FRIEND BACK IN ROOM TO SIT WITH PT.
--- NOTE | 2024-01-09 20:30 | NUR ---
PATIENT AMBULATED IN THE HALLWAY FOR ABOUT 10 MINS. PATIENT TOLERATED WELL. RETURNS TO ROOM AND IS IN BED BREAST FEEDING HER . PATIENT'S FAMILY AT BEDSIDE.
--- NOTE | 2024-01-09 21:32 | NUR ---
PROVIDED PATIENT SCHEDULED TYLENOL AND PRN MOTRIN FOR LEFT ARM PAIN 7/10. LEFT ARM IS ELEVATED. CMS INTACT. PATIENT CONTINUES TO DO HER PT EXERCISES. DRESSING INTACT, MINIMAL DRAINAGE NOTED. PATIENT'S ABD IS SOFT, BOWEL SOUNDS ACTIVE. IV SITE IN RIGHT FOREARM IS SL, FLUSHED 10 MLS. APPEARS WNL. PATIENT DENIED FURTHER NEEDS OR CONCERNS AT THIS TIME. CALL LIGHT IN REACH.
[2024-01-09 21:50] VITALS: BP 103/59
--- NOTE | 2024-01-09 23:10 | OR ---
[facility] [address], [place] [address] Signed DATE OF OPERATION: 01/05/2024 SURGEON: Howie Cisneros DO PREOPERATIVE DIAGNOSES: 1. Retained placenta. 2. hemorrhage. 3. 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 4. Uterine atony. POSTOPERATIVE DIAGNOSES: 1. Retained placenta. 2. hemorrhage. 3. 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 4. Uterine atony. 5. Acute blood loss anemia. PROCEDURES PERFORMED: 1. Total abdominal hysterectomy. 2. Bilateral salpingectomy. 3. Partial manual extraction of the placenta. 4. Uterine curettage. PATENT PARALEGAL: Lissette Hernandez MD ANESTHESIA: General. ESTIMATED BLOOD LOSS: 2200 mL in total. SPECIMEN: 1. Portions of the placenta. 2. Uterus and portion of the cervix. 3. Bilateral fallopian tubes. DRAINS: Geller to gravity. Electronically Signed By: HOWIE CISNEROS DO (JD) 01/09/24 2310 PATIENT NAME: NOAH WEBB OPERATIVE REPORT DATE OF : [birth year] REPORT #: [id number] PHYSICIAN: HOWIE CISNEROS DO (JD) PCP: ALLEN DEJESUS REPORT IS CONFIDENTIAL AND NOT TO BE RELEASED WITHOUT AUTHORIZATION [facility] [address] [place] [id number] Signed FINDINGS: Retained placenta, densely adherent to the uterine cavity concerning for accreta spectrum. Heavy bleeding despite medical and surgical interventions. On laparotomy, atonic uterus with normal tubes and ovaries. Uterus was opened after hysterectomy with continued densely adherent portions of the placenta again concerning for possible accreta. Hemostasis at the end of the procedure. COMPLICATIONS: Continued hemorrhage with retained placenta concerning for accreta requiring life-saving hysterectomy. INDICATIONS: Ms. Webb is a pleasant 33-year-old, G7, P4 female who presented to Labor and Delivery for elective induction of labor. was uncomplicated. The patient received Cytotec and when cervix was ripe, artificial rupture of membranes was performed. The patient quickly progressed and received an epidural. The patient dilated from 2 cm to complete and less than 1 hour and quickly pushed to deliver a viable male . Please see delivery note for detail. After delivery of the , the placenta failed to deliver with routine obstetrical interventions. After approximately 20 minutes, manual extraction was attempted resulting in avulsion of the cord and noted densely adherent placenta concerning for possible accreta. Dr Hernandez also evaluated patient and attempted manual extraction which was unsuccessful. The patient then began bleeding more heavily and decision was made to proceed to the OR for manual extraction of placenta with possible curettage and any other procedures including hysterectomy. This was carefully explained to the patient and family and consents were signed. Risks, benefits, and alternatives were discussed. The patient understands and wishes to proceed with the procedure. DESCRIPTION OF PROCEDURE: The patient was taken to the OR where a time-out was performed to confirm correct patient and correct procedure. General anesthesia was adequately established. During prep, the patient was noted to be bleeding quite heavily with tachycardia. Fluid resuscitation was performed. The patient had previously obtained tranexamic acid and Pitocin per protocol. The patient was typed and crossed for 2 units of blood and labs were drawn per hemorrhage protocol. A Geller catheter was inserted and the uterine cavity was explored manually with densely adherent placenta noted. Attempt to divide the placenta from the uterus along the plane was unsuccessful and portions of the placenta were then manually extracted. The patient's bleeding became more brisk and banjo curettage was performed. Bleeding again continued to be quite brisk despite medical and surgical interventions and continued adherent portions of the placenta could be palpated w/ the curette. Decision was made at this point to proceed with a life-saving hysterectomy as the patient's hemoglobin was low and continued bleeding was Electronically Signed By: HOWIE HORTA) DO REMI 01/09/24 2310 PATIENT NAME: NOAH WEBB OPERATIVE REPORT DATE OF : [birth year] REPORT #: [id number] PHYSICIAN: HOWIE CISNEROS) PCP: ALLEN DEJESUS REPORT IS CONFIDENTIAL AND NOT TO BE RELEASED WITHOUT AUTHORIZATION [facility] [address] [place] [id number] Signed noted. The midline incision was made from just above the pubic symphysis to below the umbilicus using a surgical scalpel. Incision was carried down to the fascia. The fascia was incised using surgical scalpel and Bovie. The rectus was divided in the midline and the peritoneum was entered bluntly. Peritoneal incision was extended cephalad caudad using sharp and blunt dissection. An Orlando self retractor was placed. A atonic uterus was noted with normal tubes and ovaries bilaterally. The right round ligament was grasped with Meliton's and divided with Blair scissors. Suture ligated and hemostatic. The utero-ovarian ligament and the fallopian tube were clamped, divided, and ligated with free tie and with a suture ligation with excellent hemostasis appreciated. The process was repeated on the left side without difficulty. The leaves of the broad ligament were then divided using sharp dissection and the bladder was pushed down well below the cervix anteriorly. The posterior leaf of the broad ligament was divided toward the uterosacral ligament. The uterine vessels were skeletonized, clamped, and serially cut and suture ligated with excellent hemostasis. The cervix was somewhat difficult to palpate due to the very recent status and once the uterine vessels were divided, the uterus was clamped across with curved Z clamps and divided with Blair scissors. The corner sutures of 0 Vicryl were placed. The uterus was examined and appears that most of the cervix was removed and the vaginal length was not foreshortened. The uterus was then opened and found to have continued densely adherent placenta, likely consistent with accreta spectrum disease. The vaginal cuff was then suture ligated in a running locked manner with 0-Vicryl and then imbricated with 3-0 Vicryl. Small amount of oozing was noted in the posterior peritoneum and this was made hemostatic with 3-0 Vicryl and Bovie electrocautery. A small amount of oozing was noted from the right round ligament pedicle and this was fulgurated with LigaSure device. The pelvis was irrigated and found to be hemostatic. Attention was turned to the fallopian tubes. Each fallopian tube was grasped, elevated and divided along the mesosalpinx using the LigaSure device with excellent hemostasis. Due to the emergent nature of the hysterectomy, counts were not able to be performed preoperatively and intraoperative x-ray was performed that demonstrates no retained foreign bodies. The pelvis was then irrigated and Tisseel was applied to the dissection planes after noting excellent hemostasis. The peritoneum was reapproximated using 2-0 Vicryl in a running nonlocked manner. Rectus was irrigated and found to be hemostatic after judicious use of Bovie electrocautery. Rectus was then plicated loosely in the midline with three interrupted sutures of 0 Vicryl. Fascia was reapproximated using 0-Vicryl in a running nonlocked manner. Subcu was reapproximated using 3-0 Vicryl and subcuticular stitch after irrigation and hemostasis being ensured with Bovie electrocautery. The skin was reapproximated with surgical claudia. The patient was then transferred to the CCU in stable condition. Please see anesthesia flow sheet for intraoperative labs, fluids, and medications including an additional dose of tranexamic acid and 2 units of packed red blood cells. Electronically Signed By: HOWIE CISNEROS DO (JD) 01/09/24 199 PATIENT NAME: NOAH WEBB OPERATIVE REPORT DATE OF : [birth year] REPORT #: [id number] PHYSICIAN: HOWIE CISNEROS DO (JD) PCP: ALLEN DEJESUS REPORT IS CONFIDENTIAL AND NOT TO BE RELEASED WITHOUT AUTHORIZATION [facility] [address] [place] [id number] Hernandez was present and participated in all portions of the procedure. DO CESAR Pérez/KARENA /[id number] Copies: ~ Electronically Signed By: HOWIE CISNEROS DO (JD) 01/09/242309 PATIENT NAME: NOAH WEBB OPERATIVE REPORT DATE OF : [birth year] REPORT #: [id number] PHYSICIAN: HOWIE CISNEROS (RONI) DO PCP: ALLEN DEJESUS REPORT IS CONFIDENTIAL AND NOT TO BE RELEASED WITHOUT AUTHORIZATION
--- NOTE | 2024-01-09 23:30 | NUR ---
PATIENT RESTING IN BED. EYES CLOSED. LEFT ARM ELEVATED. FAMILY IN ROOM. CALL LIGHT IN REACH.
--- NOTE | 2024-01-10 03:21 | NUR ---
PATIENT PROVIDED WITH PRN PAIN MEDS FOR PAIN 02/15. PATIENT REPORTS SLEEPING OFF AND ON. ANXIETY WELL MANAGED AT THIS TIME. PATIENT SITTING UP IN BED DOING SOME HAND EXERCISES WITH LEFT HAND. CMS INTACT. AND ARM ELEVATED ON PILLOWS ABOVE THE HEART. PATIENT DECLINED OTHER NEEDS. CALL LIGHT IN REACH.
--- NOTE | 2024-01-10 05:15 | NUR ---
LAB IN ROOM FOR MORNING DRAW. ATTEMPT MADE TO PULL FROM PERIPHERAL SITE; SITE WNL BUT DOES NOT DRAW BACK BLOOD. STRAIGHT STICK DONE BY LAB. PATIENT TOLERATED WELL. PATIENT IN GOOD SPIRITS THIS MORNING. PATIENT UP TO THE BATHROOM INDEPENDENTLY. RETURNED TO BED. VS STABLE. PAIN WELL CONTROLED. LEFT ARM CMS INTACT. CALL LIGHT IN REACH. PATIENT IN BED WITH LEFT ARM ELEVATED.
[2024-01-10 05:30] VITALS: BP 123/77
[2024-01-10 05:44] LABS: BASOPHILS 0.5 % (0-2); HEMATOCRIT 27.7 % (35.0-50.0); HEMOGLOBIN 9.2 g/dL (12.0-18.0); LYMPHOCYTES 15.6 % (24-44); MCH 28.5 (27-36); MCHC 33.1 g/dl (30-36); MONOCYTES 6.4 % (0-12); NEUTROPHILS 76.5 % (39-80); PLATELET COUNT 182 K/uL (140-440); RBC 3.22 M/ul (4.3-5.7); RDW 15.6 (10.5-15.0)
[2024-01-10 05:50] LABS: ANION GAP 11.7 (7-21); BUN/CREATININE RATIO 10.76 (6.0-28.6); CALCIUM 7.2 mg/dL (8.5-10.1); CREATININE, SERUM 0.65 mg/dL (0.55-1.02); MAGNESIUM 1.7 mg/dL (1.8-2.4); POTASSIUM 3.7 mmol/L (3.5-5.1)
[2024-01-10] MEDS ORDERED: MAGNESIUM SULFATE 2 GM/50 ML BAG IV ONE (07:30)
--- NOTE | 2024-01-10 07:30 | NUR ---
REPORT RECEIVED FROM STARR CASTRO. PT RESTING IN BED WITH EYES CLOSED, RESP EVEN AND UNLABORED, ALBARO ELEVATEDON PILLOWS.
--- NOTE | 2024-01-10 08:15 | NUR ---
DR PENA IN TO DISCUSS PLAN FOR OR TODAY TO DO WOUND CLOSURE UNDER ANESTHESIA, PT AND EXPRESS UNDERSTANDING AND QUESTIONS ANSWERED.
[2024-01-10 08:27] VITALS: BP 114/82
--- NOTE | 2024-01-10 09:15 | NUR ---
INTO TO SEE PATIENT. CHUN AT [facility], BABY TO BREAST. DISCUSSED THE PURPOSE OF CASE MANAGEMENT IN CONNECTING THE PATIENT WITH SERVICES. PER PATIENT SHE WAS WORKING AT THE [employer] PRIOR TO HER DELIVERY. PATIENT WAS 4 DAYS SHORT OF HER 1 YEAR EMPLOYMENT WHEN SHE WENT INTO LABOR. PATIENT STATES UNFORTUNITLY [employer] WILL NOT ED HER PAID MATURNITY LEAVE AT THIS TIME. [place] STATES HE IS ALSO RECENTLY UNEMPLOYEED. DISCUSSED RESOURCES SUCH [facility] [place] AND THE [facility] PROGRAMS. PATIENT AND ARE AGREEABLE TO THIS RN REACHING OUT TO THESE PROGRAMS FOR ASSISTANCE. THIS RN WILL ALSO LOOK INTO THE [place] PAID LEAVE ACT TO SEE IF THE PATIENT WOULD QUALIFY. CALL PLACED TO ROSA AIKEN WITH THE [facility] TEAM. ROSA STATE SHE HAS MADE CONTACT WITH THE PATIENT IN THE PAST AND WOULD BE HAPPY TO MEET WITH THEM AGAIN. DISCUSSED WITH THE PATIENT AND SHE IS AGREEABLE TO ASSISTANCE. APPOINTMENT WITH ROSA FROM [facility] SET UP FOR 01/11/24 @ [id number] PRIOR TO PATIENTS DISCHARGE. SPOKE WITH ZOYA COOL WITH THE [facility] [place]. DISCUSSED ELIGIBILTY REQUIREMENTS AND APPLICATION. ZOYA STATES THE PATIENT WOULD LIKELY BE ELIGABLE TO LEAVE AND ENCOURAGE APPLICATION. PATIENT AND UPDATE AND APPLICATIONS FOR PAID LEAVE GIVEN.
--- NOTE | 2024-01-10 09:34 | NUR ---
VISITED DURING SPIRITUAL CARE ROUNDS. PT SITTING UP IN BED IN IMPROVED SPIRITS. BABY FEEDING. SHORT VISIT SO TO ALLOW PT TIME WITH BABY. WILL RETURN CIRCUMSTANCES WARRANT.
--- NOTE | 2024-01-10 11:47 | NUR ---
OR NURSE IN TO DISCUSS PLAN FOR WOUND CLOSURE THIS AFTERNOON, AND OTHER FAMILY IN WITH PT, QUESTIONS ANSWERED. PT DENIES NEEDS AT THIS TIME.
--- NOTE | 2024-01-10 12:40 | NUR ---
PATIENT UP TO BR FOR VOID. FAMILY IN ROOM. LINEN AND GOWN CHANGED.
[2024-01-10] MEDS ORDERED: CEFAZOLIN SODIUM 2 GM/20 ML SYR IV ONE (13:00)
--- NOTE | 2024-01-10 13:10 | NUR ---
ANESTHESIA IN TO TALK ABOUT PLAN FOR PROCEDURE WITH PT AND HER INCLUDING PLAN FOR ANESTHESIA AND ETT, QUESTIONS ANSWERRED. PT HAVING ANXIETY AND IS EMOTIONAL AT PROSPECT OF ANESTHESIA BUT DOES STATE "IT HAS TO BE DONE". AT BEDSIDE COMFORTING PT.
[2024-01-10] MEDS ORDERED: ROCURONIUM BROMIDE 50 MG/5 ML SYR ONE (13:21)
[2024-01-10] MEDS ORDERED: propofoL 200 MG/20 ML VIAL ONE (13:21)
[2024-01-10] MEDS ORDERED: SUGAMMADEX SODIUM 200 MG/2 ML ML ONE (13:21)
[2024-01-10] MEDS ORDERED: DEXAMETHASONE SOD PHOS 4 MG/ML VIAL ONE (13:21)
[2024-01-10] MEDS ORDERED: LIDOCAINE HCL 2% 5 ML SDV ONE (13:21)
[2024-01-10] MEDS ORDERED: ondansetron HCL 4 MG/2 ML VIAL ONE (13:21)
[2024-01-10] MEDS ORDERED: MIDAZOLAM HCL 2 MG/2 ML VIAL ONE (13:22)
[2024-01-10] MEDS ORDERED: fentaNYL citrate 100 MCG/2 ML VIAL ONE (13:22)
--- NOTE | 2024-01-10 13:29 | NUR ---
PT TO OR WITH OR NURSES
[2024-01-10 13:40] LABS: RBC, LEUKOREDUCED 18212409920300F
--- NOTE | 2024-01-10 14:02 | NUR ---
CONNECTED WITH FAMILY DURING SPIRITUAL CARE ROUNDS. BHARATH EXPRESSED CONCERN AND FRUSTRATION REGARDING NEED FOR DEEPER SEDATION FOR PROCEDURE, CONFUSION REGARDING WHY TODAY IS DIFFERENT FROM YESTERDAY. CONNECTED FAMILY FRIEND WITH MS/CCU HEEL FINISHER SANNA MANZANARES FOR CLARIFICATION. LEFT SANNA AND RN YAIR TALKING WITH FAMILY. BHARATH EXPRESSED GRATITUDE.
--- NOTE | 2024-01-10 14:11 | PATH ---
[facility] [address] [place], [place] [address] Signed SPECIMEN(S): A PORTION OF PLACENTA SPECIMEN(S): B UTERUS SPECIMEN(S): C FALLOPIAN TUBES, BILATERAL SPECIMEN SOURCE: A. PORTION OF PLACENTA B. UTERUS C. FALLOPIAN TUBES, BILATERAL CLINICAL HISTORY: S/P vaginal delivery, hemorrhage FINAL PATHOLOGIC DIAGNOSIS: A. Designated "portion of placenta": - Fragmented placental tissue with: - Basal plate myometrial fibers - Avascular villi (small foci) B. Uterus, hysterectomy: - Placenta accreta - Placental parenchyma with no significant pathologic changes C. Fallopian tubes, bilateral, salpingectomy: - Fimbriated fallopian tube segments (two) with no significant pathologic changes BRP MICROSCOPIC EXAMINATION: Histologic sections of all submitted blocks are examined by light microscopy. These findings, together with the gross examination, support the pathologic diagnosis. GROSS DESCRIPTION: A. The specimen, labeled and designated "Mcneeley, " and designated on the requisition "portion of placenta," is received in formalin and consists of markedly fragmented portion of placenta (15.0 x 15.0 x 4.7 cm in aggregate). No umbilical cord is received. The tissue is sectioned to reveal hull-brown pale and spongy cut surfaces. Bdr sections are submitted in cassette [id number]. B. The specimen, labeled and designated "Mcneeley, " and designated on the requisition "uterus," is received in formalin and consists of a previously opened uterus (961 g, 17.5 cm superior-inferior, 13.2 cm cornu to cornu, 8.1 cm anterior to posterior) no ectocervical tissue is PATIENT NAME: NOAH KAYE PATHOLOGY DATE OF : [birth year] REPORT #: [id number] PHYSICIAN: TALA SUMMERS PCP: ALLEN DEJESUS REPORT IS CONFIDENTIAL AND NOT TO BE RELEASED WITHOUT AUTHORIZATION [facility] [address] [place], [place] [address] Signed gross identified. The serosa is hull to red-brown and wrinkled. The specimen is opened to reveal an endometrial cavity (15.0 cm superior-inferior by 8.0 cm cornu to cornu) with attached red-brown clot-like material and red-brown soft tissue/placenta (up to 2.5 cm in thickness. The myometrium is hull-pink to red-brown markedly trabeculated measuring up to 4.0 cm in thickness. Bdr sections are submitted Cassette Summary: (B1) serosa and myometrium (B2-B4) endometrium with adherent placental and clot-like tissue C. The specimen, labeled and designated "Anna, " and designated on the requisition "bilateral fallopian tubes," is received in formalin and consists of 2 undesignated red-brown fimbriated fallopian tube segments (5.0 cm in length and ranging diameter from 0.8 to 1.4 cm, and 4.8 cm in length and ranging diameter from 0.7 to 1.5 cm). One fallopian tube segment is arbitrarily inked blue. Both segments are sectioned to reveal hull-pink cut surfaces with a pinpoint lumen. Bdr sections of each segment are submitted in cassette C1-C2. AC (under the direct supervision of a pathologist) The Gross Description was prepared using a voice recognition system. The report was reviewed for accuracy; however, sound-alike word errors, addition and/or deletions may occur. If there is any question about this report, please contact Client Services. ADDITIONAL NOTES: Immunohistochemical and/or in situ hybridization studies if performed in this case included appropriate positive controls that reacted as expected. This test was developed and its performance characteristics determined by [facility]. It has not been cleared or approved by the U.S. Food and Drug Administration. The FDA has determined that such clearance or approval is not necessary. This test is used for clinical purposes. It should not be regarded as investigational or for research. [facility] is certified under the Clinical Laboratory Improvement Amendments of 1988 (CLIA) as qualified to perform high complexity clinical laboratory testing. PERFORMING LABORATORY: Technical component was performed by [facility], Dinah Soto, PATIENT NAME: NOAH KAYE PATHOLOGY DATE OF : [birth year] REPORT #: [id number] PHYSICIAN: TALA SUMMERS PCP: ALLEN DEJESUS REPORT IS CONFIDENTIAL AND NOT TO BE RELEASED WITHOUT AUTHORIZATION [facility] [address] [place], [place] [address] [place] [address] (CLIA# [id number]). Professional interpretation was performed by [facility] - [address] [id number] Diagnostician: Brenton Perez MD Pathologist Electronically Signed 01/10/2024 Copies: ~ PATIENT NAME: HOMADEMARNOAHMATHEW HUA PATHOLOGY DATE OF : [birth year] REPORT #: [id number] PHYSICIAN: TALA SUMMERS PCP: ALLEN DEJESUS REPORT IS CONFIDENTIAL AND NOT TO BE RELEASED WITHOUT AUTHORIZATION
[2024-01-10] MEDS ORDERED: droPERidol 5 MG/2 ML VIAL IV PRN (14:15)
[2024-01-10] MEDS ORDERED: ACETAMINOPHEN 1,000 MG/100 ML VIAL ONE (14:15)
[2024-01-10] MEDS ORDERED: IBLOOD GLUCOSE TEST STRIP 1 EA TEST VI PRN (14:15)
[2024-01-10] MEDS ORDERED: fentaNYL citrate 50 MCG/ML SDV IV PRN (14:15)
[2024-01-10] MEDS ORDERED: ondansetron HCL 4 MG/2 ML VIAL IV PRN (14:15)
[2024-01-10] MEDS ORDERED: NALOXONE HCL 0.4 MG SYR IV PRN (14:15)
[2024-01-10] MEDS ORDERED: HYDROmorphone HCL 1 MG/ML SYR IV PRN (14:15)
[2024-01-10] MEDS ORDERED: PROCHLORPERAZINE EDISYLATE 10 MG/2 ML VIAL IV PRN (14:15)
--- NOTE | 2024-01-10 15:30 | NUR ---
DR PENA IN TO RELAY TO BHARATH HOW THE WOUND CLOSURE WENT AND FURTHER PLAN OF CARE FROM HERE. DR PENA HAD LONG TALK WITH PT'S , ANSWERED QUESTIONS AND EXPLAINED REASONING, RATIONALES AND FURTHER OPTIONS FOR CARE GOING FORWARD. AFTER DR PENA LEFT STATES, "GET ME THE PAPER WORK, IM GOING AMA". PT VERY UPSET AT THE FACT THAT THE WOUND WAS NOT ABLE TO BE CLOSED FULLY, TAX COMPLIANCE AGENT SANNA AND THIS RN CONTINUED TO TALK WITH REGARDING DIFFERENT OPTIONS, LISTENING TO HIS CONCERNS AND HE AGREED TO TALK WITH PT WHEN SHE GETS BACK AND IS MORE AWAKE AND HE IS AGREEABLE.
--- NOTE | 2024-01-10 15:50 | NUR ---
01/10/24 1550 Caitlyn Mendez 1507 PT ARRIVED IN PACU SLEEPY WITH L ARM ELEVATED ON 3 PILLOWS. 1515 C/O L WRIST PAIN 9/10. DILAUDID 1MG GIVEN IV. 1525 RESTING.REU. 1540 PAIN DOWN TO 7/10 IN L WRIST. DILAUDID 0.5MG GIVEN IV. 1550 RESTING. REU.
--- NOTE | 2024-01-10 15:59 | NUR ---
PT BACK TO ROOM FROM OR, PT IS AWAKE, HUMAN PROJECTILE AT BEDSIDE. IN ROOM.
[2024-01-10 16:05] VITALS: BP 123/82
--- NOTE | 2024-01-10 17:00 | NUR ---
PT IS AWAKE IN BED, CONT TO DENY NEED FOR PAIN MEDICATION. IS SITTING UP HOLDING BABY, DISCUSSING FURTHER PLAN OF CARE WITH .
[2024-01-10 17:08] VITALS: BP 113/79
--- NOTE | 2024-01-10 18:13 | NUR ---
PT IS SITTING IN BED WITH BABY, IN ROOM, OTHER FAMILY MEMBERS IN ROOM, HAS EATEN SOME DINNER AND IS FEELING WELL.
[2024-01-10] MEDS ORDERED: FUROSEMIDE 20 MG TAB PO ONE (18:45)
--- NOTE | 2024-01-10 19:17 | NUR ---
answered call light assisted pt to amb to br to void qs, washed hands, sm pea size amt of mora drainage pink tinged. abd midline ins. with claudia and steri strips wnl - pt washed hands at sink, amd amb to ch, pillow x2 up elevated and call light in reach while in chair. at side.
--- NOTE | 2024-01-10 19:57 | NUR ---
SBAR REPORT RECEIVED FROM GLORIA MAZARIEGOS. YAIR CONTINUES TO BE IN ROOM WITH PATIENT. SPOUSE BHARATH LEFT HOME FOR A LITTLE BIT TO REST AND COLLECT SUPPLIES. NO NEEDS IDENTIFIED AT THIS TIME
[2024-01-10 21:00] VITALS: BP 107/75
[2024-01-10] MEDS ORDERED: AMOXICILLIN/CLAVULANATE K 500 MG TAB PO SCH (21:00)
--- NOTE | 2024-01-10 21:18 | NUR ---
PATIENT NOAH ENDORSES COMFORT THIS HOUR. SHE REQUESTED APPLE JUICE WITH EVENING MEDS. IN CHAIR WATCHING TELEVISION WITH BABY KOKO ON CHEST. SPOUSE BHARATH IS RESTING WITH EYES CLOSED ON COUCH. NOAH INDICATES NUMBNESS IN LEFT HAND AND ALL FIVE FINGERS. SHE IS ABLE TO TOUCH THE HER THUMB TO INDEX AND MIDDLE FINGER.
[2024-01-11 04:11] LABS: BASOPHILS 0.3 % (0-2); EOSINOPHILS 0.6 % (0-6); HEMATOCRIT 28.2 % (35.0-50.0); HEMOGLOBIN 9.2 g/dL (12.0-18.0); LYMPHOCYTES 15.5 % (24-44); MCH 28.1 (27-36); MCHC 32.5 g/dl (30-36); MCV 86.5 fl (81-99); MONOCYTES 7.1 % (0-12); NEUTROPHILS 76.5 % (39-80); PLATELET COUNT 218 K/uL (140-440); RBC 3.26 M/ul (4.3-5.7); RDW 15.6 (10.5-15.0)
[2024-01-11 04:19] LABS: ANION GAP 11.7 (7-21); BUN/CREATININE RATIO 6.45 (6.0-28.6); CALCIUM 7.6 mg/dL (8.5-10.1); CREATININE, SERUM 0.62 mg/dL (0.55-1.02); POTASSIUM 3.7 mmol/L (3.5-5.1)
[2024-01-11 04:24] VITALS: BP 112/78
--- NOTE | 2024-01-11 04:25 | NUR ---
PATIENT NOAH IS NOTED TO BE RESTING WITH EYES CLOSED. LEFT HAND AND ARM CONTINUES TO BE WARM. SLIGHT NUMBNESS ENDORSED. SHE IS ABLE TO FEEL INDEX AND MIDDLE FINGER TO THUMB. NO NEEDS ENDORSED AT THIS TIME
--- NOTE | 2024-01-11 06:41 | NUR ---
PATIENT NOAH HAD AN UNEVENTFUL EVENING WITH NO ACUTE EVENTS. SHE RESTED WELL WITH EYES CLOSED MOST OF THE EVENING. BABY KOKO AND SPOUSE BHARATH REMAINED AT BEDSIDE. NEURO- ALERT AND ORIENTED X4, LUE HAS MODERATE SENSATION, SOME NUMBNESS ENDORSED, ABLE TO MOVE ALL FINGERS, ABLE TO TOUCH MIDDLE AND INDEX FINGER TO THUMB, PERRL, LEFT HAND/ARM PAIN CONTROLLED WITH SCHEDULED ACETAMINOPHEN CARDIAC- SR- ST WITH ANXIETY, AFEBRILE, MINIMAL EDEMA NOTED IN LEFT EXTREMITY RESP- RA, CLEAR BREATH SOUNDS GI/- BOWEL TONES, VOIDS TO BATHROOM, PASSING FLATUS, SCHEDULED SENNA INT- SEE ASSESSMENT CARE CONFERENCE SCHEDULED TODAY AT 0930 TODAY
--- NOTE | 2024-01-11 08:14 | NUR ---
PATIENT AWAKE, SITTING UP IN BED. CLEAR BREAKFAST TRAY PROVIDED. FACE AND HANDS WASHED. PATIENT REORIENTED TO PLACE. VITALS AND I&OS CHARTED. CALL LIGHT IN EASY REACH
[2024-01-11 08:17] VITALS: BP 109/69
--- NOTE | 2024-01-11 08:55 | NUR ---
PATIENT AWAKE AND SITTING UP IN BED, BABY ON BED WITH PATIENT. AT BEDSIDE. NO NEEDS AT THIS TIME, STEPPING OUT FOR A FEW MINUTES, CALL LIGHT IN EASY REACH
[2024-01-11] MEDS ORDERED: FUROSEMIDE 20 MG TAB PO SCH (09:00)
--- NOTE | 2024-01-11 09:03 | NUR ---
IN PATIENT'S ROOM FOR AM ASSESSMENT AND VITALS. PATIENT LAYING IN BED WITH BABE IN HER ARMS. /FATHER OF BABE AT BEDSIDE. PATIENT ASKING FOR SOMETHING FOR PAIN AT THIS TIME. PATIENT WAS GIVEN TYLENOL AT 0630 AND NOT ELIGIBLE FOR ANYMORE UNTIL 1400. PO DILAUDID AVAILABLE BUT PATIENT DENIES WANTING THIS AT THIS TIME. ASSESSMENT COMPLETE. PT IS ABLE TO FEEL LIGHT TOUCH SENSATION TO ALL FIVE FINGERS ON LEFT HAND-HAND REMAINS SWOLLEN. PT ABLE TO TOUCH INDEX FINGER TO THUMB, MIDDLE FINGER TO THUMB, BUT NOT THE LAST TWO FINGERS. MIDLINE INCISION C/D/I WITH GILBERT, WELL APPROXIMATED. PT UP TO VOID AND WAS ABLE TO HAVE A BM WELL. PT EATING BREAKFAST AND TOLERATING WELL. ICE REPLENISHED IN CUP. WILL CONTINUE TO MONITOR.
--- NOTE | 2024-01-11 09:50 | NUR ---
Met with Alise with [facility] from [facility]. Discussed with pt what her options are for wound care, counseling, and OP OT therapy. Discussed OP VS Home Health. Pt would prefer to have wound care through the hospital in OP and go to the [facility] for OT for her L arm. Abi will assist with setting up counseling here in town as pt feels she is in a fragile mental state, assist with transportation, and activities for the children. Nikki states he will be off and can also transport her. Orders for wound care and OP OT with printed charts taken to CCU for Dr. Caldera to complete.
--- NOTE | 2024-01-11 10:16 | NUR ---
DR. PENA IN TO SEE PATIENT AROUND 0930 AND PLAN OF CARE BEING DISCUSSED. PATIENT AGREEABLE TO D/C HOME TODAY WITH FOLLOW UPS TO HAPPEN AT DAY SURGERY DAILY. PATIENT GIVEN AM MEDICATIONS. PT'S GRANDPARENTS IN ROOM NOW HELPING WITH PRECIOUSE FATHER HAS STEPPED OUT FOR A MEETING. OT TO BE IN ROOM SOON TO WORK WITH PATIENT.
--- NOTE | 2024-01-11 11:00 | NUR ---
PATIENT ASKING TO SHOWER. DR. PENA CALLED TO INQUIRE WHEN HE WILL BE ABLE TO COME COMPLETE DRESSING CHANGE. DISCUSSED PO PAIN MEDICATIONS AND PRN MOTRIN GIVEN. PT TO DC HOME TODAY AFTER DRESSING CHANGE. OT STILL TO SEE PATIENT.
--- NOTE | 2024-01-11 11:30 | NUR ---
PATIENT INTO SHOWER WITH THIS MCAT INSTRUCTOR ASSISTING. PATIENT DID WELL WITH ACTIVITY AND WAS ABLE TO ASSIT WITH WASHING BODY AND HAIR. LINE CHANGED, ROOM TIDIED. HOLDING BABY. PATIENT BACK TO BED AFTER SHOWER, BABY TO BREAST, PILLOWS SUPPORTING BABY AND LEFT ARM. O/T AT BEDSIDE. NO OTHER NEEDS AT THIS TIME
--- NOTE | 2024-01-11 11:44 | NUR ---
PATIENT HELPED GET SET UP FOR A SHOWER AND FOOT SPECIALIST NOW IN HELPING PATIENT WITH THIS. LINENS ON BED CHANGED.
--- NOTE | 2024-01-11 12:45 | NUR ---
VISITED DURING SPIRITUAL CARE ROUNDS. IN ROOM WITH PT AND BABY. BOTH EXHIBITED STRONG RELATIONAL RESOURCES, LOVING INTERACTION WITH BABY. PROVIDED SUPPORTIVE PRESENCE, ANTICIPATORY GUIDANCE, HOSPITALITY. PT AND EXPRESSED GRATITUDE.
[2024-01-11 13:06] VITALS: BP 99/66
--- NOTE | 2024-01-11 13:27 | NUR ---
UR CONCURRENT REVIEW: [facility] 01/[facility]/24 @ 0605 AUTH# [id number] MS SURGERY OR PROCEDURE GRG ADDED. VARIANCE ADDED FOR STAGE 2 PATIENT STILL REQUIRING MONITORING FOR FURTHER COMPARTMENT SYNDROME AND CLOSURE OF THE WOUND. DISCHARGE TO HOME WHEN STABLE. 01/14/24.
--- NOTE | 2024-01-11 13:31 | NUR ---
PATIENT SLEEPING AT THIS TIME. WAITING FOR DR. PENA TO COME IN TO SEE PATIENT TO PERFORM DRESSING CHANGE.
--- NOTE | 2024-01-11 13:37 | NUR ---
DR. PENA IN TO SEE PATIENT AT THIS TIME AND PERFORM DRESSING CHANGE. PT TOLERATING WELL. PT'S AND SON REMAIN IN ROOM.
--- NOTE | 2024-01-11 13:56 | NUR ---
PATIENT TOLERATED DRESSING CHANGE WELL. PT WILL D/C HOME TODAY AND FOLLOW UP TOMORROW WITH DAY SURGERY AT 10:30. PT TO ARRIVE AT HOSPITAL AT 10:15 TO GET CHECKED IN WITH ADMITTING. DR. PENA TO SEE WOUND AGAIN TOMORROW. PT'S BHARATH IN ROOM THROUGH ALL OF THIS AND UNDERSTANDING OF PLAN. PT GIVEN SCHEDULED TYLENOL.
[2024-01-11] MEDS ORDERED: IBUPROFEN800 MG PO (14:46)
[2024-01-11] MEDS ORDERED: ACETAMINOPHEN500 MG PO (14:46)
[2024-01-11] MEDS ORDERED: AMOX TR-K CLV1 EACH PO (14:46)
[2024-01-11] MEDS ORDERED: FAMOTIDINE20 MG PO (14:48)
[2024-01-11] MEDS ORDERED: BISACODYL10 MG PR (14:48)
[2024-01-11] MEDS ORDERED: STIMULANT LAXA1 EACH PO (14:48)
[2024-01-11 15:15] VITALS: BP 107/79
--- NOTE | 2024-01-13 08:42 | OR ---
[facility] [address] [place], [place] [address] Signed DATE OF OPERATION: 01/07/2024 SURGEON: Adrian Pena MD PREOPERATIVE DIAGNOSIS: Recent left arm fasciotomy, status post compartment syndrome, left lower arm. POSTOPERATIVE DIAGNOSES: 1. Recent left arm fasciotomy, status post compartment syndrome, left lower arm. 2. Viable underlying muscle and skin. PROCEDURES: 1. Exam under anesthesia (IV sedation), removal of left arm dressing. 2. Application of Kerlix dressing. ANESTHESIA: IV sedation, Nata Tiffanie, EMT INTERMEDIATE(fentanyl, Precedex and 2 mL propofol). INDICATION: This 33-year-old white woman, a patient of Dr. Cisneros and underwent vaginal delivery of her 5th child on January 05, 2024. The patient had intractable uterine bleeding, likely related to placenta accreta requiring emergency abdominal hysterectomy which saved her life. Pathology ultimately confimed placenta accreta which accounted for her exanguinating hemmorhage. She did have infiltration of an IV during the course of her resuscitation and was noted to have left arm swelling and sensory changes with preservation of pulses, but findings highly suggestive of left forearm compartment syndrome. I was consulted approximately 4:30 a.m. yesterday and evaluation included pressure management of her compartments showing high suspicion of compartment syndrome. She underwent emergency volar and dorsal fasciotomy of the forearm and interosseous fasciotomy of the dorsum of the hand with dressing application. She had marked improvement. She does have elevated myoglobin in her serum, though it is stable and not increasing. The patient does have preserved sensation of the median, radial, and ulnar nerve distribution of the hand, unable to move her fingers and thumb. Dressing change is recommended under IV sedation for a variety of reasons. She understands the risk of the procedure and the possibility that perhaps some level of closure of the wounds could be undertaken. It is noted that she has dynamic wound tension on the various incisions with yellow vessel loops and claudia in place. The risk of bleeding, infection, and Electronically Signed By: ADRIAN PENA MD 01/13/24 0842 PATIENT NAME: NOAH KAYE OPERATIVE REPORT DATE OF : [birth year] REPORT #: [id number] PHYSICIAN: ADRIAN PENA MD PCP: ALLEN DEJESUS REPORT IS CONFIDENTIAL AND NOT TO BE RELEASED WITHOUT AUTHORIZATION [facility] [address] [place] [id number] Signed other unforeseen complications were reviewed with her and her . They understand and wished to proceed. FINDINGS: The muscle was viable in the dorsal and volar components including over the hand. The edema of the skin is much improved and is viable, but no significant closure would be possible of her fasciotomy wounds at this time. DESCRIPTION OF PROCEDURE: The patient was brought to the operating room and arm extended to the left over a hand table. She was given initially pain medication of fentanyl, subsequently some Precedex and ultimately some propofol allowing for removal of the dressing by me. The underlying extremity was examined fully. There was some swelling that persisted all of the areas in question including the hand, wrist and forearm, but far or less than what it was previously. The underlying muscle was completely viable. The application of tension on rubber bands particular over the dorsum did allow for some migration of the skin, but not enough to reliably cinch down or allow for progress of closure of the wounds. On that basis with sterile technique, sterile Kerlix gauze soaked with sterile saline was applied on the volar and dorsal aspect. Ultimately, wrapped with Kerlix and Jun wrap. She was allowed to emerge from sedation and taken to recovery room in good condition. Blood loss was none. ASSESSMENT: Underlying muscle and sensory function of the arm is at this time preserved. Dressing changes daily will be anticipated whether or not she will need additional sedation remains to be seen, though it was appropriate that she had good pain control on this dressing change. MD URBAN Sargent/MODL /[id number] cc: Dr. Patricio Cisneros Electronically Signed By: ADRIAN PENA MD 01/13/24 0842 PATIENT NAME: NOAH KAYE OPERATIVE REPORT DATE OF : [birth year] REPORT #: [id number] PHYSICIAN: ADRIAN PENA MD PCP: ALLEN DEJESUS REPORT IS CONFIDENTIAL AND NOT TO BE RELEASED WITHOUT AUTHORIZATION [facility] [address] [place] [address] Signed TALITA Tran Copies: HOWIE CISNEROS (RONI) DO ~ Electronically Signed By: ADRIAN PENA MD 01/13/24 0842 PATIENT NAME: NOAH KAYE OPERATIVE REPORT DATE OF : [birth year] REPORT #: [id number] PHYSICIAN: ADRIAN PENA MD PCP: ALLEN DEJESUS REPORT IS CONFIDENTIAL AND NOT TO BE RELEASED WITHOUT AUTHORIZATION
--- NOTE | 2024-01-13 08:42 | OR ---
[facility] [address] [place], [place] [address] Signed DATE OF OPERATION: 01/10/2024 SURGEON: Adrian Pena MD PREOPERATIVE DIAGNOSIS: History of left arm dorsal and volar fasciotomy as well as interosseous dorsum of hand fasciotomy on January 06, 2024. POSTOPERATIVE DIAGNOSIS: History of left arm dorsal and volar fasciotomy as well as interosseous dorsum of hand fasciotomy on January 06, 2024. PROCEDURES: 1. Incomplete closure of left volar fasciotomy of forearm, closure length greater than 25 cm. Remaining wound 6 cm. 2. Complete closure of left dorsal forearm fasciotomy 12 cm. ANESTHESIA: General endotracheal, Frantz Blanchard CRNA. INDICATION: This 33-year-old white woman suffered life-threatening urine bleeding relating to a placenta accreta on or about January 06, 2024. She did additionally have left lower arm and hand area compartment syndrome related to infiltrated IV related to aggressive fluid resuscitation and transfusion. She underwent a left volar forearm extensive fasciotomy by me as well as a dorsal compartment fasciotomy and interosseous space fasciotomy on January 06, 2024. She has largely recovered from this and the edema of her arm and hand has improved. She has had a dressing change under anesthesia and yesterday underwent closure of the dorsum of the hand. Fasciotomy sites with examination of the dorsal forearm and volar forearm fasciotomy sites. They appear likely able to provide for definitive closure, though that is not certain. A dynamic tension system has been set up with yellow vessel loops, which has helped to avoid wound drift. She is now to undergo exam under anesthesia, closure of the dorsal forearm fasciotomy site if possible, and the volar one as well. She understands as does her the risk of bleeding, infection, incomplete closure, need for additional time to allow for muscle edema to resolve for definitive closure or grafting. Understanding this they wished to proceed. FINDINGS: Closure of the dorsal fasciotomy was without problem using an interrupted mattress Electronically Signed By: ADRIAN PENA MD 01/13/24 0842 PATIENT NAME: NOAH KAYE OPERATIVE REPORT DATE OF : [birth year] REPORT #: [id number] PHYSICIAN: ADRIAN PENA MD PCP: KIM DEJESUS REPORT IS CONFIDENTIAL AND NOT TO BE RELEASED WITHOUT AUTHORIZATION [facility] [address] [place], [place] [address] Signed configuration of 2-0 nylon suture. The closure of the dorsum of the hand wounds was progressing well without sign of ischemia or necrosis. The muscle underlying all compartments examined was quite viable. Closure of the volar fasciotomy was incomplete. In the area above the wrist in the distal forearm still had excessive edema of the muscle to allow for skin closure over the area at this point. The other areas were able to be closed without undue tension. Dynamic wound closed with yellow vessel loops was once again reapplied to the distal forearm. The area not fully closed. I suspect it will be more amenable to closure in the near future. PROCEDURE IN DETAIL: The patient was brought to the operating room, given a general endotracheal anesthetic. Preoperative antibiotic Ancef was given. Sequential compression device stockings were used. The left arm dressing was removed by me and examination undertaken showing improved edema of the dorsum and volar aspect of the forearm and the hand. Closure of the hand, interosseous and fasciotomies was undertaken yesterday and this appeared to be viable. The left arm was then prepared with a Betadine solution and draped sterilely. Removal of the claudia from the dorsum of the forearm was undertaken and the wound closed with interrupted vertical mattress 2-0 nylon suture. Approximately 12 cm of fasciotomy was closed. Inspection of the volar aspect showed the flap on the ulnar aspect to be easily mobilized from the underlying muscle. The muscle bellies on the dorsum as well as a ventral or volar portion were quite viable indeed. There was still edema of the muscle in the distal forearm on the volar aspect. The carpal canal allowed for reapproximation without much tension. The upper portion of the arm including the antecubital space area and proximal forearm and a large part of the flap itself was able to be reapproximated with interrupted 2-0 nylon suture in a vertical mattress configuration. Unfortunately, the edema of the muscle bellies in the distal forearm was still such that closure of the skin over it was not possible at this time. Extension and flexion of the forearm at the wrist did decrease the area for which coverage would be required, but still closure at this point is not possible and she may ultimately require skin graft. I am optimistic that muscle edema will resolve in the next few days allowing for closure or more elaborate closure as necessary. On the basis of incomplete closure moistened saline gauze was applied to the muscle belly in the area of nonclosure and Xeroform gauze applied to the areas of closure. I was advised by the covering linotyper a few days ago, Dr. Curry that removal of the low midline abdominal skin clips would be advisable at this time frame. Several of the clips were removed, but the tenuousness of the skin precluded complete removal of those claudia at this time. The area that was removed was secured with Steri-Strips and the remaining claudia left in place. These will be removed later when more security of the closure is demonstrated. Electronically Signed By: ADRIAN PENA MD 01/13/24 0842 PATIENT NAME: NOAH KAYE OPERATIVE REPORT DATE OF : [birth year] REPORT #: [id number] PHYSICIAN: ADRINA PENA MD PCP: KIM DEJESUS REPORT IS CONFIDENTIAL AND NOT TO BE RELEASED WITHOUT AUTHORIZATION [address] [address] Signed MD URBAN Sargent/KARENA /[id number] cc: MD Kim Bains FNP James D Ward, DO Copies: SELENA GRIFFITH MD, JAMES (JD) ~ Electronically Signed By: ADRIAN PENA MD 01/13/24 0842 PATIENT NAME: NOAH KAYE OPERATIVE REPORT DATE OF : [birth year] REPORT #: [id number] PHYSICIAN: ADRIAN PENA MD PCP: KIM DEJESUS REPORT IS CONFIDENTIAL AND NOT TO BE RELEASED WITHOUT AUTHORIZATION
--- NOTE | 2024-01-13 11:05 | OR ---
[facility] [address], [place] [address] Signed DATE OF OPERATION: 01/09/2024 SURGEON: Adrian Pena MD PREOPERATIVE DIAGNOSIS: Left arm compartment syndrome, status post left forearm and dorsum of forearm fasciotomy with dorsum of hand fasciotomy on January 06, 2024. POSTOPERATIVE DIAGNOSES: 1. Left arm compartment syndrome, status post left forearm and dorsum of forearm fasciotomy with dorsum of hand fasciotomy on January 06, 2024. 2. Improved swelling; viable muscle. 3. Dorsum of hand fasciotomy sites able to close. PROCEDURES: 1. Exam under anesthesia. 2. Closure of dorsum of hand fasciotomy site x2 (6 cm and 6 cm). 3. Application of sterile wound dressing to remaining fasciotomy sites x2. ANESTHESIA: Intravenous sedation in the operating room, fentanyl 100 mcg and Versed 3 mg. 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 Volar fasciotomy extended from above the elbow medially down the forearm and into the left palmar area including carpal tunnel release. Interosseous fasciotomy of the dorsum of the hand was undertaken as well as the dorsum of the forearm. She has largely recovered from the compartment syndrome and is improving. She had significant edema and inflammation of the hand and forearm and underwent exam under anesthesia and dressing change within the first 24 hours of operation on January 07, 2024. There was still excessive swelling and inability to close the fasciotomy sites, but in the past 48 hours, she has had marked improvement with swelling in particular fingers. She is on a rehabilitation schedule with motion of her fingers and hand and wrist and improving quite a bit at this point. Dressing change was deferred from yesterday to today. Possible closure of one or more fasciotomy sites is anticipated in addition to sterile dressing change. She understands as does her the risk of bleeding, infection, and so forth and wished to proceed findings. All fasciotomy sites were quite viable. A dynamic tension approach was taken with the yellow vessel loops. In the dorsum of the Electronically Signed By: ADRIAN PENA MD 01/13/24 1105 PATIENT NAME: NOAH KAYE OPERATIVE REPORT DATE OF : 89 REPORT #: [id number] PHYSICIAN: ADRIAN PENA MD PCP: ALLEN DEJESUS REPORT IS CONFIDENTIAL AND NOT TO BE RELEASED WITHOUT AUTHORIZATION [facility] [address], [place] [address] Signed hand wounds were easily able to be reapproximated with interrupted 2-0 nylon with removal of the dynamic tension bands and associated claudia. The dorsum forearm and volar forearm fasciotomy sites are likely nearing ability for closure as well. This was not done today at this point. DESCRIPTION OF PROCEDURE: The patient was brought to the operating room, placed in a supine position. With full cardiopulmonary monitoring, she was given intravenous sedation with Demerol 100 mcg and Versed 3 mg. She tolerated this approach well. The dressing, which included an Jun wrap and sterile Kerlix gauze was carefully removed and examination of forearm undertaken. The volar tissue was quite viable including the underlying muscle and dynamic tension on the wound edges appeared to be appropriate. Tightening of the bands did show some migration of the skin indicative of decreased in edema. Although, the volar wound might be able to be closed at this time, given the extent of it and the midportion, which still has some bulging muscle. This was not possible for today. In the dorsum forearm, there was closer reapproximation of the skin and certainly no drifting of the skin away based on the dynamic tension of the rubber bands. It too is soon able to be closed definitively it appears. In the dorsum of the hand, there was still some edema, but those wounds were able to be closed. The yellow vessel loops were removed and the skin closed with interrupted 2-0 nylon suture in an interrupted configuration. Each fasciotomy site was approximately 6 cm in length. The combined closure was 12 cm. The clips were removed as well. The wound was then sterilely dressed with Kerlix, gauze, moistened and sterile saline with dry Kerlix wrap and ultimately an Jun wrap. She was allowed to emerge from sedation and taken to the recovery room in good condition to recover in her room in the intensive care unit. MD URBAN Sargent/KARENA /[id number] cc: Dr. Susana Cisneros Electronically Signed By: ADRIAN PENA MD 01/13/24 1105 PATIENT NAME: NOAH KAYE OPERATIVE REPORT DATE OF : [birth year] REPORT #: [id number] PHYSICIAN: ADRIAN PENA MD PCP: ALLEN DEJESUS REPORT IS CONFIDENTIAL AND NOT TO BE RELEASED WITHOUT AUTHORIZATION [facility] [address] [place] [address] Signed TALITA Tran Copies: HOWIE CISNEROS (RONI) DO ~ Electronically Signed By: ADRIAN PENA MD 01/13/24 1105 PATIENT NAME: NOAH KAYE OPERATIVE REPORT DATE OF : [birth year] REPORT #: [id number] PHYSICIAN: ADRIAN PENA MD PCP: ALLEN DEJESUS REPORT IS CONFIDENTIAL AND NOT TO BE RELEASED WITHOUT AUTHORIZATION
--- NOTE | 2024-01-13 11:05 | DS ---
[facility] [address], [place] [address] Signed ADMISSION DATE: 01/05/2024 DISCHARGE DATE: 01/11/2024 REASON FOR ADMISSION: This 33-year-old white woman was admitted by Dr. Cisneros for childbirth. The patient has four children previously, this being her 5th child. She was admitted for childbirth and other indicated interventions. PERTINENT PHYSICAL EXAMINATION: GENERAL: A pleasant 33-year-old woman who was in active labor at admission. VITAL SIGNS: Her BMI was 25.7, weight 65 kg. Height 5 feet 3 inches. NECK: Trachea was midline. CHEST: Clear. HEART: Regular without murmur. ABDOMEN: With gravid uterus. EXTREMITIES: Without clubbing, cyanosis, or edema. HOSPITAL COURSE: The patient was admitted and underwent vaginal delivery under the direction of Dr. Cisneros. She soon thereafter had profound life-threatening hemorrhage from the uterus. Evacuation of placental remnants was undertaken by both Dr. Cisneros and Dr. Hernandez but it was quite clear she had retained placenta densely adherent to the uterine cavity clinically consistent with accreta type pathology. On that basis, she underwent total abdominal hysterectomy, bilateral salpingectomy with ovarian sparing following uterine curettage and manual extraction of placental remnants. The operation was life-saving and she no doubt would have exsanguination and demise without the intervention. During the course of her resuscitation including intravenous fluid administration and transfusion, she did have intravenous infiltration of IV fluid and blood products. Though she was initially managed with left arm elevation for what appeared to be an edematous hand and forearm, some cyanosis was also noted. Close monitoring prompted further concern and surgical consultation was undertaken with me at about 4:30 a.m. My evaluation showed clinical findings suggestive of left forearm compartment syndrome as was suspected. Compartment pressures were obtained with the volar compartment of 56, a dorsal pressure of 12 and the thenar eminence pressure of 22. Her Electronically Signed By: ADRIAN PENA MD 01/13/24 1105 PATIENT NAME: NOAH KAYE DISCHARGE SUMMARY DATE OF : 89 REPORT #: [id number] PHYSICIAN: ADRIAN PENA MD PCP: ALLEN DEJESUS REPORT IS CONFIDENTIAL AND NOT TO BE RELEASED WITHOUT AUTHORIZATION [facility] [address] [place] [id number] Signed clinical findings did include sparing of the pulse as would be expected in the radial area but tense, edematous and pain of the hand and forearm with passive stretch and palpation. On that basis, she underwent right arm volar fasciotomy extending from the antecubital space through the carpal canal as well as interosseous compartment release on the dorsum of the hand and the dorsum of the forearm. Dynamic wound closure with yellow vessel loops was undertaken and sterile saline dressings applied. Obstetric care was provided by [facility] baggage porter. The patient was noted to have a hematocrit that drifted as low as 16 for which transfusion was undertaken which was durably beneficial. A CT scan of the abdomen and pelvis was obtained to assure there was no sign of intra-abdominal bleeding and there was none. The patient was maintained with left arm elevation and moist saline gauze dressings over the fasciotomy site. She required exam under anesthesia for dressing changes. On January 10, 2024, closure of the fasciotomy of the dorsum and volar forearm was undertaken. The distal volar forearm wound could not be closed completely due to persistent forearm muscle edema. Dynamic tension bands ( yellow vessel loops ) were applied so as to allow resolution of muscle edema while minimizing skin "drift' while healing. By this point, the patient was doing quite well and strongly wanted to be discharged to home and further management undertaken as an outpatient. She did agree to visit on a daily basis the wound clinic for which sterile saline gauze dressing will be applied to the distal forearm in hopes of additional resolution of muscle edema to allow for closure of the wound. If necessary, she may require a split-thickness skin graft to this area as well and she understands that. By the day of discharge, she is ambulating well. She is breast-feeding her child without problem. Her hematocrit is stable at 28.2 with platelets of 218,000 with normal electrolytes and renal function. She has been organized for outpatient wound care as described and I will be seeing her on a routine basis there. Additionally, occupational therapy consultation has been undertaken to assist with rehabilitation of her left arm and hand and finger function, which I expect will be ultimately fully restored. DISCHARGE MEDICATIONS: Her discharge medications will include: Electronically Signed By: ADRIAN PENA MD 01/13/24 1105 PATIENT NAME: NOAH KAYE DISCHARGE SUMMARY DATE OF : [birth year] REPORT #: [id number] PHYSICIAN: ADRIAN PENA MD PCP: ALLEN DEJESUS REPORT IS CONFIDENTIAL AND NOT TO BE RELEASED WITHOUT AUTHORIZATION [address] [address] Signed 1. Motrin 600 mg p.o. q.6 hours p.r.n. pain. 2. Tylenol plain 1000 mg p.o. q. 8 hours p.r.n. pain. 3. Augmentin 500 mg one tablet p.o. b.i.d., #14. 4. Sennosides, docusate sodium two tablets p.o. b.i.d. as needed for constipation. 5. Famotidine 20 mg p.o. b.i.d. #60. She will resume her usual medication of hydroxyzine 25 mg one-half to 1 tablet p.o. q.6 hours as needed for anxiety. 6. Flonase spray 1 to 2 sprays nasal b.i.d. as needed. 7. Sertraline 50 mg p.o. daily. DISCHARGE DIAGNOSES: 1. Normal spontaneous vaginal delivery of healthy . 2. 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 3. Emergency total abdominal hysterectomy with salpingectomy with ovarian sparing. 4. Perioperative left lower arm compartment syndrome requiring emergency volar and dorsal and interosseous fasciotomy. 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 Howie Cisneros. I will be seeing the patient in the wound care clinic as continued management of her left arm fasciotomy is ongoing. MD URBAN Sargent/KARENA /[id number] cc: MD Howie Bains, TALITA Mercado Copies: SELENA HERNANDEZ MD Electronically Signed By: ADRIAN PENA MD 01/13/24 1105 PATIENT NAME: NOAH KAYE DISCHARGE SUMMARY DATE OF : 89 REPORT #: [id number] PHYSICIAN: ADRIAN PENA MD PCP: ALLEN DEJESUS REPORT IS CONFIDENTIAL AND NOT TO BE RELEASED WITHOUT AUTHORIZATION [address] [address] Signed HOWIE CISNEROS (RONI) DO ~ Electronically Signed By: ADRIAN PENA MD 01/13/24 1105 PATIENT NAME: NOAH KAYE DISCHARGE SUMMARY DATE OF : [birth year] REPORT #: [id number] PHYSICIAN: ADRIAN PENA MD PCP: ALLEN DEJESUS REPORT IS CONFIDENTIAL AND NOT TO BE RELEASED WITHOUT AUTHORIZATION
== END 2024-01-11 15:34 | disposition home or self-care (01) | DRG 768 ==
LOC: CCU 06:05 → FBC 06:05 → CCU 22:22
PROVIDERS: Obstetrics & Gynecology; Surgery; ADMIT Obstetrics & Gynecology; ATTEND Obstetrics & Gynecology
PROC: 0UT90ZZ Resection of Uterus, Open Approach (ICD-10-PCS; 2024-01-05)
PROC: 10D17Z9 Manual Extraction of Products of Conception, Retained, Via Natural or Artificial Opening (ICD-10-PCS; 2024-01-05)
PROC: 3E0R3BZ Introduction of Anesthetic Agent into Spinal Canal, Percutaneous Approach (ICD-10-PCS; 2024-01-05)
PROC: 00HU33Z Insertion of Infusion Device into Spinal Canal, Percutaneous Approach (ICD-10-PCS; 2024-01-05)
PROC: 10907ZC Drainage of Amniotic Fluid, Therapeutic from Products of Conception, Via Natural or Artificial Opening (ICD-10-PCS; 2024-01-05)
PROC: 10E0XZZ Delivery of Products of Conception, External Approach (ICD-10-PCS; principal; 2024-01-05 20:30)
PROC: 0UB70ZZ Excision of Bilateral Fallopian Tubes, Open Approach (ICD-10-PCS; 2024-01-05 20:30)
PROC: 0KNB0ZZ Release Left Lower Arm and Wrist Muscle, Open Approach (ICD-10-PCS; 2024-01-06)
PROC: 0KND0ZZ Release Left Hand Muscle, Open Approach (ICD-10-PCS; 2024-01-06)
PROC: 30233N1 Transfusion of Nonautologous Red Blood Cells into Peripheral Vein, Percutaneous Approach (ICD-10-PCS; 2024-01-07)
PROC: 0JQK0ZZ Repair Left Hand Subcutaneous Tissue and Fascia, Open Approach (ICD-10-PCS; 2024-01-09)
PROC: 0JQH0ZZ Repair Left Lower Arm Subcutaneous Tissue and Fascia, Open Approach (ICD-10-PCS; 2024-01-10)
DX: O62.3 Precipitate labor (principal); Z37.0 Single live birth; D62 Acute posthemorrhagic anemia; O72.1 Other immediate postpartum hemorrhage; M79.A12 Nontraumatic compartment syndrome of left upper extremity; O90.81 Anemia of the puerperium; O99.893 Other specified diseases and conditions complicating puerperium; O76 Abnormality in fetal heart rate and rhythm complicating labor and delivery; Z3A.39 39 weeks gestation of pregnancy
CPT/HCPCS: 00400; 00840; 01810; 01960; 36415; 36430; 74018; 74177; 80048; 80053; 80202; 80307; 81003; 82553; 83030; 83735; 83874; 85025; 85027; 85060; 85384; 85610; 85730; 86850; 86900; 86901; 86922; 88302; 88307; 97162; 97165; 99153; A9270; G0500; J0131; J0330; J0690; J1100; J1170; J1885; J2001; J2060; J2175; J2250; J2270; J2371; J2405; J2590; J2704; J2765; J2790; J2795; J3010; J3475; J3490; J7030; J7121; P9016; P9059; Q0177; Q9967

== ENCOUNTER 2025-02-09 18:04 | Emergency (ER) | payer OTHER ==
[~2025-02-09] VITALS: Ht 152.4 cm; Wt 47.7 kg
[~2025-02-09 18:04] MED LIST changes: +ACETAMINOPHEN500 MG PO; +ADVIL200 MG PO; +AMOX TR-K CLV1 EACH PO; +BISACODYL10 MG PR; -CALCIUM CARBONATE 500 MG CHEW PO PRN; +FAMOTIDINE20 MG PO; +FLONASE ALLERG9.9 ML NAS; +IBUPROFEN800 MG PO; -LACTATED RINGER'S 1,000 ML IV SCH; -MAGNESIUM HYDROXIDE/AL HYDROX 30 ML CUP PO PRN; +STIMULANT LAXA1 EACH PO; +TYLENOL325 MG PO; -miSOPROStoL 25 MCG TAB PV SCH
[2025-02-09 19:00] LABS: BASOPHILS 0.6 % (0.1-1.2); EOSINOPHILS 0.3 % (0.7-5.8); LYMPHOCYTES 21.7 % (19.3-51.7); MCH 29.5 PG (25.6-32.2); MCHC 32.7 g/dL (32.2-35.5); MCV 90.1 fL (79.4-94.8); MONOCYTES 6.6 % (4.7-12.5); NEUTROPHILS 70.7 % (34.0-71.1); RBC 4.75 M/uL (3.93-5.22)
[2025-02-09 19:07] LABS: INR 1.12 (0.80-1.30); PROTIME 13.7 Sec (11.2-14.2)
[2025-02-09 19:14] LABS: ALT (SGPT) 26.0 U/L (14-59); AST (SGOT) 19.0 U/L (15-37); GLOMERULAR FILTRATION RATE,EST 89.0 mL/min (>60); PROTEIN, TOTAL 7.4 g/dL (6.4-8.2); UREA NITROGEN 10.0 mg/dL (7-18)
[2025-02-09] MEDS ORDERED: ASPIRIN 81 MG CHEW PO ONE (21:30)
[2025-02-10 00:39] VITALS: BP 95/58
--- NOTE | 2025-02-11 07:38 | EKG ---
[facility] [address] [facility] [place], [place] [address] Signed Normal sinus rhythm Normal ECG No previous ECGs available Confirmed by Juana Reina MD ([id number]) on 02/11/2025 7:38:11 AM Electronically Signed By: JUANA REINA MD 02/11/25 0738 PATIENT NAME: NOAH KAYE Electrocardiogram DATE OF : 89 PHYSICIAN: JUANA REINA MD REPORT #: [id number] REPORT IS CONFIDENTIAL AND NOT TO BE RELEASED WITHOUT AUTHORIZATION
== END 2025-02-10 00:39 | disposition home or self-care (01) ==
LOC: ED 18:04
PROVIDERS: Emergency Medicine
DX: R42 Dizziness and giddiness (principal); F43.9 Reaction to severe stress, unspecified; Z79.2 Long term (current) use of antibiotics; Z90.711 Acquired absence of uterus with remaining cervical stump
CPT/HCPCS: 36415; 70450; 70496; 70498; 70549; 70551; 71045; 80053; 84703; 85025; 85610; 85730; 93005; 93010; 99284-25; A9270; A9573; Q9967